=== PATIENT | female | born 1955 | race Caucasian/White ===

== ENCOUNTER → 2022-04-06 15:01 | Outpatient (BNVA) | payer MEDICARE, MEDICAID, SELFPAY | PROVIDERS: PCP Internal Medicine; Visit Provider Internal Medicine Rheumatology | DX: L40.50 Arthropathic psoriasis, unspecified (principal); M19.041 Primary osteoarthritis, right hand; M19.042 Primary osteoarthritis, left hand | CPT/HCPCS: 99212 ==

== ENCOUNTER → 2022-09-29 08:54 | Outpatient (BNVA) | payer MEDICARE, MEDICAID, SELFPAY | PROVIDERS: PCP Internal Medicine; Visit Provider Internal Medicine Rheumatology | DX: L40.50 Arthropathic psoriasis, unspecified (principal); L40.9 Psoriasis, unspecified; M19.041 Primary osteoarthritis, right hand; M19.042 Primary osteoarthritis, left hand; Z79.899 Other long term (current) drug therapy | CPT/HCPCS: 36415; 80053; 85025; 85652; 86140; 99212 ==

== ENCOUNTER 2022-09-29 10:13 | Outpatient (REF) | payer MEDICARE, MEDICAID, SELFPAY ==
[2022-09-29 10:56] LABS: Basophils Percent Auto 0.6 % (0-2); Eosinophils Absolute Auto 0.1 X10*3/uL (0.0-0.4); Eosinophils Percent Auto 1.5 % (0-4); Imm Gran Abs Auto 0.01 X10*3/uL (0.00-0.03); Imm Gran Pct Auto 0.2 % (0.0-0.4); Lymphocytes Absolute Auto 1.6 X10*3/uL (1.2-4.9); MANUAL DIFF FLAG NO; Mean Corpuscular HGB Conc 33.3 g/dl (31.0-35.0); Mean Corpuscular Volume 93.1 fL (80.0-98.0); Mean Platelet Volume 11.2 fL (9.4-12.3); Monocytes Absolute Auto 0.7 X10*3/uL (0.1-1.2); Monocytes Percent Auto 9.9 % (2-11); Neutrophils Absolute Auto 4.1 x10*3/uL (2.0-8.3); Neutrophils Percent Auto 62.8 % (45-73); Platelet Count 214 X10*3/uL (160-400); Red Blood Count 4.51 X10*6/uL (4.20-5.50); White Blood Count 6.6 X10*3/uL (4.8-10.8)
[2022-09-29 11:29] LABS: Alanine Aminotransferase 14 U/L (0-31); Albumin Level 4.5 g/dL (3.5-5.0); Alkaline Phosphatase 47 U/L (39-117); Anion Gap 16 (12-20); Aspartate Amino Transferase 22 U/L (5-31); Bilirubin Total 0.5 mg/dL (0.0-1.0); Blood Urea Nitrogen 18 mg/dL (9-16); C Reactive Protein 0.62 mg/dL (< or = 0.50); Calcium 9.6 mg/dL (8.4-10.2); Carbon Dioxide 24 mmol/L (22-29); Chloride 102 mmol/L (96-108); Estimated Glomerular Filt Rate > 60; Glucose Random 88 mg/dL (60-115); Sodium 138 mmol/L (135-145); Total Protein 7.4 g/dL (6.5-8.0)
[2022-09-29 11:46] LABS: Erythrocyte Sedimentation Rate 5 MM/HR (0-20)
== END 2022-09-29 10:14 | disposition home or self-care (01) ==
LOC: HO.10HDL 10:13
PROVIDERS: Visit Provider Internal Medicine Rheumatology
DX: Z13.89 Encounter for screening for other disorder (principal)
CPT/HCPCS: 36415; 80053; 85025; 85652; 86140

== ENCOUNTER 2023-03-25 08:34 | Outpatient (AMB) | payer MEDICARE, MEDICAID, SELFPAY ==
[2023-03-25 08:38] VITALS: BP 154/80; PULSE 78; TEMP 36.3; BMI 25.0
--- NOTE | 2023-03-25 08:38 | A.OFFVIS_ITS ---
Intake Vital Signs 03/25/23 08:38 Height 5 ft 7 in Weight 159 lb 6.307 oz BMI 25.0 BP 154/80 H Blood Pressure Location Lt brachial Position Sitting Pulse 78 Pulse Source Palpation Temp 97.4 F Temp Source Skin Intake Visit Reasons: psa Intake Note: Pt seen today for PsA follow up. Denies new or increased joint pain. States skin is dry and flaky Cmv Driver Required: No Accompanied by: Self / Same As Patient Allergies No Known Allergies Allergy (Verified 03/25/23 08:39) Medication List - Last Reconciled 03/25/23 by Kirk Bourne MD adalimumab (Humira(CF) Pen) 40 mg (0.4 mL) subcut Q2W 56 days buprenorphine-naloxone 1.4-0.36 mg (Zubsolv) 1 tab sublingual DAILY bupropion HCl (Wellbutrin XL) 300 mg PO QAM calcipotriene 0.005% 1 appl topical BID PRN clonazepam 1 mg PO BID PRN clonidine HCl 0.2 mg PO BEDTIME PRN levothyroxine 150 mcg PO DAILY lisinopril 2.5 mg PO DAILY mometasone 0.1% 1 appl topical .twice a day PRN quetiapine (Seroquel) 200 mg PO DAILY sulfasalazine 0.5 grams PO QID triamcinolone acetonide 0.1% 1 appl topical DAILY umeclidinium-vilanterol 62.5-25 mcg/actuation 1 inh inhalation DAILY HPI HPI Comments History of Present Illness Details The patient returns for evaluation of her psoriatic arthritis and psoriasis. She says the psoriasis is absent. She gets occasional discomfort in the hands mostly at the base of the thumbs. This seems to occur after heavier yard work. She is tolerating the 40 mg every 2 weeks Humira and 1 g b.i.d. sulfasalazine without any apparent side effects. She did have blood work done earlier in the summer. [facility] Surgical History H/O breast biopsy History of surgery Hx of colonoscopy Family History Mother Stroke Hypertension Arthritis Father Cirrhosis Liver cancer Social History Household Members Other:: lives alone Housing: Other Housing Other:: Mobile home Are you a primary customer care coordinator to a significant other at home: No Do you presently have visiting nurse or other home services: No 75 years or older and lives alone: No Alcohol intake: never Tobacco use type: Cigarette Cigarettes Per Day: 9 Years Smoked: 35 years e-Cigarette/Vaping Use: Never Used service: No Current occupational status: retired Review of Systems Const Details: Negative for appetite change, weight change, fever, chills, malaise and fatigue Eyes Details: Negative for vision change, dry eyes,headaches and dizziness Skin/Breast Details: Negative for itching, rash, hives, Raynaud's symptoms, sun sensitivity, and skin cancer Endo Details: Negative for polyuria and polydypsia Wei/Lymph Details: Negative for excessive bruising or bleeding. Physical Exam Vital Signs: Last Vital Signs Temp 97.4 F 03/25/23 08:38 Pulse 78 03/25/23 08:38 BP 154/80 H 03/25/23 08:38 BMI result Body Mass Index 25.0 APPEARANCE: Patient in no acute distress EYES no redness, pupils equal and reactive to light, eyelids normal EXTREMITIES: No edema, no calf tenderness, normal peripheral pulses. SKIN: No inflammatory or neoplastic lesions. Normal color and turgor JOINT EXAM: Cervical Spine:.? Full range of motion without pain; no tenderness. Thoracic Spine:.? No scoliosis.? No tenderness on palpation. Lumbar Spine:.? Alignment normal.? Full range of motion without pain, no tenderness. Chest Wall:.? No tenderness, swelling, increased warmth or erythema. Hands:.? ? Right:? Slight thickening without tenderness of the 1st 3 MCP joints.? There is slight thickening at the 2nd PIP which has some degree of pain with full extension.? It is minimally tender but not red or warm. ? She can only flex about 90 degrees at that PIP joint.? Passively I can extend the joint fully but she lacks about 10 degrees of full extension.? There is moderate bony enlargement and mild to moderate tenderness at the base of the thumb.? There is some slight thickening without tenderness or limited motion at the other PIP joints.? Similarly the 2nd through 5th D IP's have some mild bony enlargement, flexion deformity but no tenderness.? Left:? Mild tenderness and swelling with the bony enlargement at the 1st CMC joint.? There is some slight thickening without tenderness at the 4th and 5th PIP in the 2nd and 5th PIP joints.? She has no thenar atrophy or sensory loss.? Wrists:.? Normal pain-free range of motion without tenderness, swelling, increased warmth or erythema. Elbows:. Normal pain-free range of motion without tenderness, swelling, increased warmth or erythema. Shoulders:.?? Full range of motion without pain. No tenderness, weakness, swelling, increased warmth or erythema. Hips:.? Full range of motion without pain. Hip bursa:.? No tenderness. Knees:.?? Normal pain-free range of motion with mild patellofemoral crepitus.? There is some slight medial tenderness in the left knee but not on the right.? Both knees lack effusions, soft tissue swelling, increased warmth or erythema.? Ankles:.? Normal pain-free range of motion without tenderness, swelling, increased warmth or erythema. Feet:.? ? Right:? Slight bony enlargement without tenderness at the 1st MTP joint; otherwise the joints in the foot have normal pain-free range of motion without tenderness, swelling, increased warmth or erythema. left:? Slight bony enlargement at the 1st MTP.? No MTP tenderness.? No other tenderness, redness or soft tissue swelling. Tender points:? No tenderness to digital palpation at the occiput, trapezius, second rib, lateral epicondyle, knees, greater trochanter and gluteal area bilaterally. ? Results Reviewed Results Reviewed: Lab work from [place]: December 2020: Creatinine 0.74, hemoglobin 14.4, white count 4000, AST 13, ALT 14. QuantiFERON testing negative the February 2023: Creatinine 0.92, AST 20 Assessment & Plan Assessment & Plan (1) Psoriasis: Code(s): L40.9 - Psoriasis, unspecified (2) Osteoarthritis of hands, bilateral: Code(s): M19.041 - Primary osteoarthritis, right hand; M19.042 - Primary osteoarthritis, left hand (3) watermelon inspector use of drug: Code(s): Z79.899 - Other remote computer terminal operator (current) drug therapy (4) Psoriatic arthritis: Comment: Sulfasalazine since 05/10 Humira added 01/08, held for a few weeks due to rash Code(s): L40.50 - Arthropathic psoriasis, unspecified Plan Psoriatic arthritis with I think good control of inflammation with current treatment. She does not seem to have any side effects with the medications so they will be continued as above. The transaminases remain normal suggesting no return of her viral hepatitis B or C. She had recent blood work so I do not thi nk we need to repeat them. We will see her back in about 4-5 months. Coding Level of Care Code Est Pt Level 3 (68031) Diagnoses Psoriasis L40.9 Osteoarthritis of hands, bilateral M19.041; M19.042 watermelon inspector use of drug Z79.899 Psoriatic arthritis L40.50
== END 2023-03-25 09:16 | disposition home or self-care (01) ==
PROVIDERS: PCP Internal Medicine; Visit Provider Internal Medicine Rheumatology
DX: L40.9 Psoriasis, unspecified (principal); M19.041 Primary osteoarthritis, right hand; M19.042 Primary osteoarthritis, left hand; Z79.899 Other long term (current) drug therapy; L40.50 Arthropathic psoriasis, unspecified
CPT/HCPCS: 99213

== ENCOUNTER → 2023-03-25 08:34 | Outpatient (BNVA) | payer MEDICARE, MEDICAID, SELFPAY | PROVIDERS: PCP Internal Medicine; Visit Provider Internal Medicine Rheumatology | DX: L40.50 Arthropathic psoriasis, unspecified (principal); M19.041 Primary osteoarthritis, right hand; M19.042 Primary osteoarthritis, left hand; Z79.899 Other long term (current) drug therapy | CPT/HCPCS: 99212 ==

== ENCOUNTER 2023-07-26 10:25 | Outpatient (REF) | payer MEDICARE, OTHER, SELFPAY ==
--- NOTE | ~2023-07-26 | XR_ITS ---
EXAMINATION: XR HAND, RIGHT CLINICAL INFORMATION: Arthropathic psoriasis. COMPARISON: None available. TECHNIQUE: PA, lateral, and oblique views of the right hand. FINDINGS: Bony alignment and mineralization are normal. There are multi-focal arthritic changes of the interphalangeal joints of the fingers. These findings are particularly pronounced of the third through fifth distal interphalangeal joints and the fifth proximal interphalangeal joint, where there are central erosions. There is mild arthritic change of the first, second, third and fifth metacarpophalangeal joints. There is marked arthritic change of the first carpometacarpal joint. There is narrowing of the radiocarpal joint. No fracture or dislocation is seen. The proximal and distal carpal rows are intact. No focal soft tissue swelling, gas or foreign body is seen. XR/XR hand LT min 3V IMPRESSION: There are multi-focal arthritic changes of the right hand and wrist. There are central erosions of interphalangeal joints of the third through fifth fingers, consistent with the provided history of psoriasis. There is no acute fracture or dislocation. EXAMINATION: XR HAND, LEFT CLINICAL INFORMATION: Arthropathic psoriasis. COMPARISON: None available. TECHNIQUE: PA, lateral, and oblique views of the left hand. FINDINGS: Bony alignment and mineralization are normal. There are multi-focal arthritic changes of the interphalangeal joints of the fingers. These findings are most pronounced of the fourth proximal interphalangeal joint and the fifth proximal and distal interphalangeal joints, where there are central erosions. There is marked arthritic change of the first carpometacarpal joint. No fracture or dislocation is seen. The proximal and distal carpal rows are intact. No focal soft tissue swelling, gas or foreign body is seen. IMPRESSION: There are multi-focal arthritic changes of the left hand and wrist. There are central erosions of the interphalangeal joints of the fourth and fifth fingers, consistent with the provided history of psoriasis. No fracture or dislocation is seen.
--- NOTE | ~2023-07-26 | XR_ITS ---
EXAMINATION: XR HAND, RIGHT CLINICAL INFORMATION: Arthropathic psoriasis. COMPARISON: None available. TECHNIQUE: PA, lateral, and oblique views of the right hand. FINDINGS: Bony alignment and mineralization are normal. There are multi-focal arthritic changes of the interphalangeal joints of the fingers. These findings are particularly pronounced of the third through fifth distal interphalangeal joints and the fifth proximal interphalangeal joint, where there are central erosions. There is mild arthritic change of the first, second, third and fifth metacarpophalangeal joints. There is marked arthritic change of the first carpometacarpal joint. There is narrowing of the radiocarpal joint. No fracture or dislocation is seen. The proximal and distal carpal rows are intact. No focal soft tissue swelling, gas or foreign body is seen. XR/XR hand RT min 3V IMPRESSION: There are multi-focal arthritic changes of the right hand and wrist. There are central erosions of interphalangeal joints of the third through fifth fingers, consistent with the provided history of psoriasis. There is no acute fracture or dislocation. EXAMINATION: XR HAND, LEFT CLINICAL INFORMATION: Arthropathic psoriasis. COMPARISON: None available. TECHNIQUE: PA, lateral, and oblique views of the left hand. FINDINGS: Bony alignment and mineralization are normal. There are multi-focal arthritic changes of the interphalangeal joints of the fingers. These findings are most pronounced of the fourth proximal interphalangeal joint and the fifth proximal and distal interphalangeal joints, where there are central erosions. There is marked arthritic change of the first carpometacarpal joint. No fracture or dislocation is seen. The proximal and distal carpal rows are intact. No focal soft tissue swelling, gas or foreign body is seen. IMPRESSION: There are multi-focal arthritic changes of the left hand and wrist. There are central erosions of the interphalangeal joints of the fourth and fifth fingers, consistent with the provided history of psoriasis. No fracture or dislocation is seen.
== END 2023-07-26 10:26 | disposition home or self-care (01) ==
LOC: HO.XRAY 10:25
PROVIDERS: PCP Internal Medicine; Visit Provider Nurse Practitioner Family
DX: L40.50 Arthropathic psoriasis, unspecified (principal); M19.041 Primary osteoarthritis, right hand; M19.042 Primary osteoarthritis, left hand; Z79.899 Other long term (current) drug therapy
CPT/HCPCS: 36415; 73130; 80053; 85025; 85652; 86140; 99212

== ENCOUNTER 2023-07-26 10:25 | Outpatient (AMB) | payer MEDICARE, MEDICAID, SELFPAY ==
[2023-07-26 10:30] VITALS: BP 110/80; PULSE 79; TEMP 36.2; O2SAT 95; BMI 24.8
--- NOTE | 2023-07-26 10:30 | A.OFFVIS_ITS ---
Intake Vital Signs 07/26/23 10:30 Height 5 ft 7 in Weight 158 lb 8.198 oz BMI 24.8 BP 110/80 Blood Pressure Location Rt brachial Position Sitting Pulse 79 Pulse Source Pulse Oximeter Temp 97.2 F Temp Source Skin Pulse Oximetry (%) 95 Oxygen Delivery Method Room Air Intake Visit Reasons: ra Intake Note: Patient presents today to follow up on RA. Last seen by Dr. Bourne on 03/25/23. Craft Recruiter Required: No Accompanied by: Self / Same As Patient Allergies No Known Allergies Allergy (Verified 07/26/23 10:30) HPI HPI Comments History of Present Illness Details Ms. Schwartz, 67 yoF returns for follow-up of her psoriatic arthritis and psoriasis. She says the psoriasis is absent except that her plantar and heels gets dry and cracks at times especially during the winter. She gets occasional discomfort in the hands mostly at the base of the thumbs. This seems to occur after heavier yard work. She is tolerating the 40 mg every 2 weeks Humira and 1 g b.i.d. sulfasalazine without any apparent side effects. Last available labs 03/2023. PFSH Surgical History Hx of colonoscopy History of surgery H/O breast biopsy Family History Mother Stroke Hypertension Arthritis Father Cirrhosis Liver cancer Social History (Updated 07/26/23 @ 10:33 by EMANUEL Morton) Household Members Other:: lives alone Housing: Other Housing Other:: Mobile home Are you a primary technical healthcare consultant to a significant other at home: No Do you presently have visiting nurse or other home services: No 75 years or older and lives alone: No Alcohol intake: never Tobacco use type: Cigarette Cigarettes Per Day: 10 Years Smoked: 35 years e-Cigarette/Vaping Use: Never Used service: No Current occupational status: retired Review of Systems Const All systems reviewed & are unremarkable except as noted in HPI and below Physical Exam Vital Signs: Last Vital Signs Temp 97.2 F 07/26/23 10:30 Pulse 79 07/26/23 10:30 BP 110/80 07/26/23 10:30 Pulse Ox 95 07/26/23 10:30 Oxygen Delivery Method Room Air 07/26/23 10:30 BMI result Body Mass Index 24.8 APPEARANCE: Patient in no acute distress; groomed, pleasant affect EYES no redness, pupils equal and reactive to light, eyelids normal EXTREMITIES: No edema, no calf tenderness, normal peripheral pulses. SKIN: No inflammatory or neoplastic lesions. dry, mild cracking to plantar and heel JOINT EXAM: Hands:.? ? Right:? Slight thickening without tenderness of the 1st 3 MCP joints.? There is slight thickening at the 2nd PIP which has some degree of pain with full extension.? It is minimally tender but not red or warm. ? She can only flex about 90 degrees at that PIP joint.? Passively I can extend the joint fully but she lacks about 10 degrees of full extension.? There is moderate bony enlargement and mild to moderate tenderness at the base of the thumb.? There is some slight thickening without tenderness or limited motion at the other PIP joints.? Similarly the 2nd through 5th D IP's have some mild bony enlargement, flexion deformity but no tenderness.? Left:? Mild tenderness and swelling with the bony enlargement at the 1st CMC joint.? There is some slight thickening without tenderness at the 4th and 5th PIP in the 2nd and 5th PIP joints.? She has no thenar atrophy or sensory loss.? Wrists:.? Normal pain-free range of motion without tenderness, swelling, increased warmth or erythema. Elbows:. Normal pain-free range of motion without tenderness, swelling, increased warmth or erythema. Shoulders:.?? Full range of motion without pain. No tenderness, weakness, swelling, increased warmth or erythema. Hips:.? Full range of motion without pain. Hip bursa:.? No tenderness. Knees:.?? Normal pain-free range of motion with mild patellofemoral crepitus.? There is some slight medial tenderness in the left knee but not on the right.? Both knees lack effusions, soft tissue swelling, increased warmth or erythema.? Ankles:.? Normal pain-free range of motion without tenderness, swelling, in creased warmth or erythema. Feet:.? ? Right:? Slight bony enlargement without tenderness at the 1st MTP joint; otherwise the joints in the foot have normal pain-free range of motion without tenderness, swelling, increased warmth or erythema. left:? Slight bony enlargement at the 1st MTP.? No MTP tenderness.? No other tenderness, redness or soft tissue swelling. Tender points:? No tenderness to digital palpation at the occiput, trapezius, second rib, lateral epicondyle, knees, greater trochanter and gluteal area bilaterally. ? Results Reviewed Results Reviewed: Lab work from [place]: December 2020: Creatinine 0.74, hemoglobin 14.4, white count 4000, AST 13, ALT 14. QuantiFERON testing negative the February 2023: Creatinine 0.92, AST 20 Labs March 2023 CBC/CMP/ESR WNL Assessment & Plan Assessment & Plan (1) Psoriatic arthritis: Comment: Sulfasalazine since 05/10 Humira added 01/08, held for a few weeks due to rash Code(s): L40.50 - Arthropathic psoriasis, unspecified (2) Psoriasis: Code(s): L40.9 - Psoriasis, unspecified (3) Osteoarthritis of hands, bilateral: Code(s): M19.041 - Primary osteoarthritis, right hand; M19.042 - Primary osteoarthritis, left hand Qualifiers: Osteoarthritis type: other secondary Qualified Code(s): M19.241 - Secondary osteoarthritis, right hand; M19.242 - Secondary osteoarthritis, left hand (4) FPC use of drug: Code(s): Z79.899 - Other ocean transportation intermediary (current) drug therapy Plan #Psoriatic arthritis/PsO/Dry skin on feet: Ms. Schwartz is having good control of inflammation and PsO with the current treatment regimen of Humira 40mg Q2W and Sulfasalazine 500mg QID. I recommend to patient to lather her feet at night with Vaseline or lotion and sleep with sock. This can help to exfoliate the dry skin from plantar and heels. Patient agree so we will reassess at next visit. #Hand OA: Patient denies chronic discomfort to her hands but thumbs are sometimes bothersome. She can continue to use Tylenol PRN for residual hand pain. #Manager Asset Management Medication Use: She denies side effects with the medications and nothing observed on PE. Updated labs are needed today to assess for blood dyscrasias and to evaluate kidney and liver functions as she has a history of viral hepatitis B or C. Return to office in 6 months Orders: Orders C Reactive Protein Today L40.50 - Arthropathic psoriasis, unspecified, Z79.899 - Other ocean transportation intermediary (current) drug therapy Complete Blood Count Auto Diff Today L40.50 - Arthropathic psoriasis, unspecified, Z79.899 - Other ocean transportation intermediary (current) drug therapy Complete Blood Count Auto Diff 6 Months L40.50 - Arthropathic psoriasis, unspecified, L40.9 - Psoriasis, unspecified Erythrocyte Sedimentation Rate 6 Months L40.50 - Arthropathic psoriasis, unspecified C Reactive Protein 6 Months L40.50 - Arthropathic psoriasis, unspecified Erythrocyte Sedimentation Rate Today L40.50 - Arthropathic psoriasis, unspecified, Z79.899 - Other penitentiary (current) drug therapy Comprehensive Met. Panel Today L40.50 - Arthropathic psoriasis, unspecified, Z79.899 - Other penitentiary (current) drug therapy XR hand RT min 3V Today L40.50 - Arthropathic psoriasis, unspecified XR hand LT min 3V Today L40.50 - Arthropathic psoriasis, unspecified Coding Level of Care Code Est Pt Level 3 (41394) Diagnoses Psoriatic arthritis L40.50 Psoriasis L40.9 Other secondary osteoarthritis of both hands M19.241; M19.242 Osteoarthritis type: other secondary exterminator use of drug Z79.899
== END 2023-07-26 11:03 | disposition home or self-care (01) ==
PROVIDERS: PCP Internal Medicine; Visit Provider Nurse Practitioner Family
DX: L40.50 Arthropathic psoriasis, unspecified (principal); L40.9 Psoriasis, unspecified; M19.241 Secondary osteoarthritis, right hand; M19.242 Secondary osteoarthritis, left hand; Z79.899 Other long term (current) drug therapy
CPT/HCPCS: 99213

== ENCOUNTER 2023-07-26 11:26 | Outpatient (REF) | payer MEDICARE, MEDICAID, SELFPAY ==
[2023-07-26 13:22] LABS: MANUAL DIFF FLAG NO
[2023-07-26 14:01] LABS: Basophils Absolute Auto 0.1 X10*3/uL (0.0-0.2); Basophils Percent Auto 0.9 % (0-2); Eosinophils Absolute Auto 0.2 X10*3/uL (0.0-0.4); Eosinophils Percent Auto 2.7 % (0-4); Hematocrit 39.2 % (37.0-47.0); Hemoglobin 12.7 g/dl (12.0-16.0); Imm Gran Abs Auto 0.01 X10*3/uL (0.00-0.03); Imm Gran Pct Auto 0.2 % (0.0-0.4); Lymphocytes Absolute Auto 2.3 X10*3/uL (1.2-4.9); Lymphocytes Percent Auto 39.8 % (20-40); Mean Corpuscular HGB Conc 32.4 g/dl (31.0-35.0); Mean Corpuscular Hemoglobin 30.6 pg (27.0-33.0); Mean Corpuscular Volume 94.5 fL (80.0-98.0); Mean Platelet Volume 11.9 fL (9.4-12.3); Monocytes Absolute Auto 0.7 X10*3/uL (0.1-1.2); Monocytes Percent Auto 11.5 % (2-11); Neutrophils Absolute Auto 2.6 x10*3/uL (2.0-8.3); Neutrophils Percent Auto 44.9 % (45-73); Platelet Count 204 X10*3/uL (160-400); Red Blood Count 4.15 X10*6/uL (4.20-5.50); Red Cell Distribution Width 12.7 % (11.0-16.0); White Blood Count 5.9 X10*3/uL (4.8-10.8)
[2023-07-26 14:24] LABS: Alanine Aminotransferase 8 U/L (0-31); Alkaline Phosphatase 53 U/L (39-117); Anion Gap 11 (12-20); Aspartate Amino Transferase 15 U/L (5-31); Bilirubin Total 0.3 mg/dL (0.0-1.0); Blood Urea Nitrogen 16 mg/dL (9-16); C Reactive Protein 0.34 mg/dL (< or = 0.50); Carbon Dioxide 26 mmol/L (22-29); Chloride 105 mmol/L (96-108); Estimated Glomerular Filt Rate > 60; Glucose Random 106 mg/dL (60-115); Potassium 4.3 mmol/L (3.3-5.1); Sodium 138 mmol/L (135-145); Total Protein 7.1 g/dL (6.5-8.0)
[2023-07-26 15:22] LABS: Erythrocyte Sedimentation Rate 5 MM/HR (0-20)
== END 2023-07-26 11:27 | disposition home or self-care (01) ==
LOC: HO.10HDL 11:26
PROVIDERS: Visit Provider Nurse Practitioner Family
DX: Z13.89 Encounter for screening for other disorder (principal)
CPT/HCPCS: 36415; 80053; 85025; 85652; 86140

== ENCOUNTER 2024-01-25 08:24 | Outpatient (AMB) | payer MEDICARE, SELFPAY ==
--- NOTE | 2024-01-25 08:49 | A.OFFVIS_ITS ---
Vital Signs 01/25/24 08:59 Height 5 ft 7 in Weight 150 lb 2.157 oz BMI 23.5 BP 136/72 Blood Pressure Location Rt brachial Position Sitting Pulse 93 Pulse Oximetry (%) 93 Intake Visit Reasons: PsA Intake Note: Patient last seen 07/26/23 by Edwardo, presents today for PsA follow up. Allergies No Known Allergies Allergy (Verified 01/25/24 08:59) HPI Comments Details: Ms. Schwartz, 67 yoF returns for follow-up of her psoriatic arthritis and psoriasis. She says the psoriasis is absent except that her plantar and heels gets dry and cracks at times especially during the winter. She gets occasional discomfort in the hands mostly at the base of the thumbs. This seems to occur after heavier yard work. She is tolerating the 40 mg every 2 weeks Humira and 1 g b.i.d. sulfasalazine without any apparent side effects. She has warts on the right 4th DIP. Denies tenderness. Last available labs 07/2023. PFSH Surgical History Hx of colonoscopy History of surgery H/O breast biopsy Family History Mother Stroke Hypertension Arthritis Father Cirrhosis Liver cancer Social History (Updated 07/26/23 @ 10:33 by EMANUEL [place]) Household Members Other:: lives alone Housing: Other Housing Other:: Mobile home Are you a primary critical care clinical nurse specialist to a significant other at home: No Do you presently have visiting nurse or other home services: No 75 years or older and lives alone: No Alcohol intake: never Tobacco use type: Cigarette Cigarettes Per Day: 7 Years Smoked: 35 years e-Cigarette/Vaping Use: Never Used service: No Current occupational status: retired Review of Systems Const All systems reviewed & are unremarkable except as noted in HPI and below Physical Exam APPEARANCE: Patient in no acute distress; groomed, pleasant affect EYES no redness, eyelids normal EXTREMITIES: No edema, no calf tenderness, normal peripheral pulses. SKIN: No inflammatory or neoplastic lesions. dry, mild cracking to plantar and heel; right 4th DIP wart x 2 JOINT EXAM: Hands:.? ? Right:? Slight thickening without tenderness of the 1st 3 MCP joints.? There is slight thickening at the 2nd PIP which has some degree of pain with full extension.? It is minimally tender but not red or warm. ? She can only flex about 90 degrees at that PIP joint.? Passively I can extend the joint fully but she lacks about 10 degrees of full extension.? There is moderate bony enlarg ement and mild to moderate tenderness at the base of the thumb.? There is some slight thickening without tenderness or limited motion at the other PIP joints.? Similarly the 2nd through 5th D IP's have some mild bony enlargement, flexion deformity but no tenderness.? Left:? Mild tenderness and swelling with the bony enlargement at the 1st CMC joint.? There is some slight thickening without tenderness at the 4th and 5th PIP in the 2nd and 5th PIP joints.? She has no thenar atrophy or sensory loss.? Wrists:.? Normal pain-free range of motion without tenderness, swelling, increased warmth or erythema. Elbows:. Normal pain-free range of motion without tenderness, swelling, increased warmth or erythema. Shoulders:.?? Full range of motion without pain. No tenderness, weakness, swelling, increased warmth or erythema. Hips:.? Full range of motion without pain. Hip bursa:.? No tenderness. Knees:.?? Normal pain-free range of motion with mild patellofemoral crepitus.? There is some slight medial tenderness in the left knee but not on the right.? Both knees lack effusions, soft tissue swelling, increased warmth or erythema.? Ankles:.? Normal pain-free range of motion without tenderness, swelling, increased warmth or erythema. Feet:.? ? Right:? Slight bony enlargement without tenderness at the 1st MTP joint; otherwise the joints in the foot have normal pain-free range of motion without tenderness, swelling, increased warmth or erythema. left:? Slight bony enlargement at the 1st MTP.? No MTP tenderness.? No other tenderness, redness or soft tissue swelling. Tender points:? No tenderness to digital palpation at the occiput, trapezius, second rib, lateral epicondyle, knees, greater trochanter and gluteal area bilaterally. ? Assessment & Plan Assessment & Plan (1) Psoriatic arthritis: Comment: Sulfasalazine since 05/10 Humira added 01/08, held for a few weeks due to rash Code(s): L40.50 - Arthropathic psoriasis, unspecified Category: Medical (2) Psoriasis: Code(s): L40.9 - Psoriasis, unspecified Category: Medical (3) Osteoarthritis of hands, bilateral: Code(s): M19.041 - Primary osteoarthritis, right hand; M19.042 - Primary osteoarthritis, left hand Category: Medical Qualifiers: Osteoarthritis type: other secondary Qualified Code(s): M19.241 - Secondary osteoarthritis, right hand; M19.242 - Secondary osteoarthritis, left hand (4) [facility]FP use of drug: Code(s): Z79.899 - Other local company intermodal truck driver (current) drug therapy Category: Medical Plan #Psoriatic arthritis/PsO/Dry skin on feet: Ms. Schwartz is having good control of inflammation and PsO with the current treatment regimen of Humira 40mg Q2W and Sulfasalazine 500mg QID. She continues with dry heels as she forgot to do the recommended regimen, I had recommend to patient to lather her feet at night with Vaseline or lotion and sleep with sock as this can help to exfoliate the dry skin from plantar and heels. Patient agree so we will reassess at next visit. #Hand OA: Patient denies chronic discomfort to her hands but thumbs are sometimes bothersome. She can continue to use Tylenol PRN for residual hand pain. Xrays shows erosion consistent with PsA at the DIPs #Usp Medication Use: She denies side effects with the medications and nothing observed on PE. Updated CBC and CMP are needed today to assess for blood dyscrasias and to evaluate kidney and liver functions as she has a history of viral hepatitis B or C. Return to office in 6 months Orders: Orders Comprehensive Met. Panel Today Z79.899 - Other halfway (current) drug therapy Coding Level of Care Code Est Pt Level 3 (98578) Complex EM visit Add On G2211 Diagnoses Psoriatic arthritis L40.50 Psoriasis L40.9 Other secondary osteoarthritis of both hands M19.241; M19.242 Osteoarthritis type: other secondary terminal press operator use of drug Z79.899
[2024-01-25 08:59] VITALS: BP 136/72; PULSE 93; O2SAT 93; BMI 23.5
== END 2024-01-25 09:13 | disposition home or self-care (01) ==
PROVIDERS: PCP Internal Medicine; Visit Provider Nurse Practitioner Family
DX: L40.50 Arthropathic psoriasis, unspecified (principal); L40.9 Psoriasis, unspecified; M19.241 Secondary osteoarthritis, right hand; M19.242 Secondary osteoarthritis, left hand; Z79.899 Other long term (current) drug therapy
CPT/HCPCS: 99213; G2211

== ENCOUNTER → 2024-01-25 08:24 | Outpatient (BNVA) | payer MEDICARE, MEDICAID, SELFPAY | PROVIDERS: PCP Internal Medicine; Visit Provider Nurse Practitioner Family | DX: L40.50 Arthropathic psoriasis, unspecified (principal); L40.9 Psoriasis, unspecified; M19.241 Secondary osteoarthritis, right hand; M19.242 Secondary osteoarthritis, left hand; Z79.899 Other long term (current) drug therapy | CPT/HCPCS: 36415; 80053; 85025; 85652; 86140; 99212 ==

== ENCOUNTER 2024-01-25 09:16 | Outpatient (REF) | payer MEDICARE, MEDICAID, SELFPAY ==
[2024-01-25 11:03] LABS: Basophils Absolute Auto 0.1 X10*3/uL (0.0-0.2); Eosinophils Absolute Auto 0.1 X10*3/uL (0.0-0.4); Eosinophils Percent Auto 2.7 % (0-4); Hematocrit 39.2 % (37.0-47.0); Hemoglobin 13.2 g/dl (12.0-16.0); Imm Gran Abs Auto 0.01 X10*3/uL (0.00-0.03); Imm Gran Pct Auto 0.2 % (0.0-0.4); Lymphocytes Absolute Auto 1.7 X10*3/uL (1.2-4.9); MANUAL DIFF FLAG SCAN; Mean Corpuscular HGB Conc 33.7 g/dl (31.0-35.0); Mean Corpuscular Hemoglobin 31.7 pg (27.0-33.0); Mean Platelet Volume 11.3 fL (9.4-12.3); Monocytes Absolute Auto 0.6 X10*3/uL (0.1-1.2); Monocytes Percent Auto 10.6 % (2-11); Neutrophils Absolute Auto 2.8 x10*3/uL (2.0-8.3); Neutrophils Percent Auto 53.5 % (45-73); Platelet Count 217 X10*3/uL (160-400); Red Blood Count 4.17 X10*6/uL (4.20-5.50); Red Cell Distribution Width 12.2 % (11.0-16.0); SCAN SMEAR FLAG 1; White Blood Count 5.2 X10*3/uL (4.8-10.8)
[2024-01-25 11:34] LABS: SLIDE REVIEW VERIFIED
[2024-01-25 11:38] LABS: Alanine Aminotransferase 13 U/L (0-31); Albumin Level 4.4 g/dL (3.5-5.0); Alkaline Phosphatase 46 U/L (39-117); Anion Gap 14 (12-20); Aspartate Amino Transferase 23 U/L (5-31); Bilirubin Total 0.3 mg/dL (0.0-1.0); Blood Urea Nitrogen 13 mg/dL (9-16); C Reactive Protein 1.07 mg/dL (< or = 0.50); Calcium 9.6 mg/dL (8.4-10.2); Carbon Dioxide 24 mmol/L (22-29); Chloride 106 mmol/L (96-108); Estimated Glomerular Filt Rate > 60; Glucose Random 102 mg/dL (60-115); Sodium 139 mmol/L (135-145); Total Protein 7.5 g/dL (6.5-8.0)
[2024-01-25 11:46] LABS: Erythrocyte Sedimentation Rate 7 MM/HR (0-20)
== END 2024-01-25 09:17 | disposition home or self-care (01) ==
LOC: HO.10HDL 09:16
PROVIDERS: Visit Provider Nurse Practitioner Family
DX: Z13.89 Encounter for screening for other disorder (principal)
CPT/HCPCS: 36415; 80053; 85025; 85652; 86140

== ENCOUNTER 2024-09-07 08:05 | Outpatient (AMB) | payer MEDICARE, MEDICAID, SELFPAY ==
--- NOTE | 2024-09-07 08:20 | MHC.OFFVIS ---
Vital Signs 09/07/24 08:25 Height 5 ft 7 in Weight 147 lb 4.301 oz BMI 23.1 BP 132/80 Blood Pressure Location Lt brachial Position Sitting Respiration 16 Pulse 98 Pulse Source Pulse Oximeter Pulse Oximetry (%) 92 Oxygen Delivery Method Room Air Intake Visit Reasons: PSA Intake Note: Patient presents for PsA. Allergies No Known Allergies Allergy (Verified 09/07/24 08:24) Medication List - Last Reconciled 09/07/24 by Layla Chapa MD buprenorphine-naloxone 1.4-0.36 mg (Zubsolv) 1 tab sublingual DAILY bupropion HCl XL (Wellbutrin XL) 300 mg PO QAM clonazepam 0.5 mg PO BID PRN clonidine HCl 0.2 mg PO BEDTIME PRN Humira(CF) Pen (adalimumab) 40 mg (0.4 mL) subcut Q2W NS levothyroxine 150 mcg PO DAILY lisinopril 2.5 mg PO DAILY quetiapine (Seroquel) 200 mg PO DAILY sulfasalazine 500 mg PO QID 90 days umeclidinium-vilanterol 62.5-25 mcg/actuation 1 inh inhalation DAILY HPI Comments Details: Patient is a 68-year-old female with hypertension, hypothyroidism, history of hepatitis C status post treatment (remission achieved 11/2016) who presents for follow up of psoriasis and psoriatic arthritis Interval History: Patient last seen 01/25/2024 with Vaishali Brooke. At that time patient was stable and no changes were made to her medications. Today, Patient reports she is doing well tolerating her Humira and sulfasalazine. No new psoriatic patches and her joint pain has been overall stable Rheumatologic History: Diagnosed with psoriatic arthritis in 2017. Started on sulfasalazine and Humira was added 12/2018 due to inefficacy of sulfasalazine. Current Rheumatology Medication(s): Humira 40 mg every 2 weeks Sulfasalazine 500 mg 4 times a day [facility] Medical History (Updated 09/07/24 @ 09:11 by Layla Chapa MD) Adalimumab (Humira) long-term use Bilateral primary osteoarthritis of knee Surgical History Hx of colonoscopy History of surgery H/O breast biopsy Family History Mother Stroke Hypertension Arthritis Father Cirrhosis Liver cancer Social History Household Members Other:: lives alone Housing: Other Housing Other:: Mobile home Are you a primary career services director to a significant other at home: No Do you presently have visiting nurse or other home services: No 75 years or older and lives alone: No Alcohol intake: never Tobacco use type: Cigarette Cigarettes Per Day: 7 Years Smoked: 35 years e-Cigarette/Vaping Use: Never Used service: No Current occupational status: retired Review of Systems Const Details: Review of Systems Constitutional: Denies fever, chills, weight loss ENT: Denies vision changes, eye pain or eye redness, dental caries, dry mouth GI: Denies nausea, vomiting, diarrhea, abdominal pain, change in BM Pulm: Denies SOB, BUCK, hemoptysis, wheezing Cards: Denies chest pain, palpitations Skin: Denies Raynaud's, rash, nail changes, photosensitivity. Reports severe dry skin to her hands SNOWBOARDER: Denies headaches, weakness, paresthesias, recurrent falls MSK: as per HPI All other systems reviewed and are unremarkable except noted above Physical Exam Vital Signs: Last Vital Signs Pulse 98 09/07/24 08:25 Resp 16 09/07/24 08:25 BP 132/80 09/07/24 08:25 Pulse Ox 92 09/07/24 08:25 Oxygen Delivery Method Room Air 09/07/24 08:25 BMI result Body Mass Index 23.1 Vital signs reviewed Physical Examination CONSTITUITIONAL Patient alert and cooperative. Well appearing and in no apparent painful distress HEENT Conjunctiva and sclera clear. ?Pupils equal round and reactive to light. ?No lymphadenopathy. ? CHEST/RESPIRATORY SYSTEM Normal respiratory effort and able to speak in complete sentences. ?Clear to auscultation bilaterally. ?No crackles, rales, rhonchi, wheezes heard. CARDIAC SYSTEM Regular rate and rhythm. ?S1 and S2 heard no murmurs. ?Radial pulses intact bilaterally MSK Hands: ?Good candy maker helper strength bilaterally.?No synovitis noted to the MCPs, PIPs or DIPs. ?No tenderness to palpation of these joints. Significant Heberden's nodes and Belen's nodes noted throughout hands. Wrists: ?Full range of motion at the wrists without pain. ?No tenderness to palpation or synovitis noted to the wrists. Elbows: Full range of motion without pain. No tenderness, weakness, swelling, increased warmth or erythema. Shoulders: Full range of motion without pain. No tenderness, weakness, swelling, increased warmth or erythema. Hips: Full range of motion without pain. Hip bursa: No tenderness to palpation Knees: ?Full range of motion. ?No tenderness, swelling, increased warmth or erythema.?No effusion or crepitations Ankles: Full range of motion. ?No tenderness, swelling, increased warmth or erythema.? Feet: ?Negative squeeze test. ?No tenderness to palpation or swelling of the MTPs. Tender points:?No tenderness to palpation of the bilateral trapezius, supraspinatus, greater trochanters, anterior costochondral junctions, bilateral gluteal areas, bilateral suboccipital muscle insertions SKIN Significant xerosis to bilateral hands Results Reviewed Results Reviewed: Laboratory Tests 09/29/22 07/26/23 01/25/24 Unknown 11:30 09:20 WBC 5.2 RBC 4.17 L Hgb 13.2 Hct 39.2 Plt Count 217 ESR 7 Sodium 139 Potassium 5.0 Chloride 106 Carbon Dioxide 24 Anion Gap 14 BUN 13 Creatinine 0.83 AST 23 ALT 13 Alkaline Phosphatase 46 C-Reactive Protein 0.62 H 0.34 1.07 H Left Knee XR 03/2018 Findings: There is severe narrowing with subchondral sclerosis and spurring of the medial femoral tibial compartment. This has progressed significantly since the previous study (10/2014). There is degenerative spurring of the patellofemoral compartment and this has also progressed. No fracture or malalignment is seen. Soft tissues are normal. The patellae are normally positioned on the Merchant view. There appears to be a moderate joint effusion, not significantly changed. Impression: There is severe osteoarthritis and this has progressed since the previous study. Unchanged left knee joint effusion Assessment & Plan Assessment & Plan (1) Psoriatic arthritis: Comment: Sulfasalazine since 05/10 Humira added 01/08, held for a few weeks due to rash Code(s): L40.50 - Arthropathic psoriasis, unspecified Category: Medical Plan: #Psoriatic Arthritis Patient is a 68-year-old female with psoriasis complicated by psoriatic arthritis on Humira and sulfasalazine. Currently in remission on her current medications. Plan - Humira 40mg SC every other week - Sulfasalazine 400mg qid. Will try to taper at next visit to twice a day - CBC, CMP, ESR, CRP, Hepatitis panel, HCV viral load, HBV viral - RTC 5 months - CBC, CMP, ESR, CRP prior to next visit (2) Osteoarthritis of hands, bilateral: Code(s): M19.041 - Primary osteoarthritis, right hand; M19.042 - Primary osteoarthritis, left hand Category: Medical Qualifiers: Osteoarthritis type: other secondary Qualified Code(s): M19.241 - Secondary osteoarthritis, right hand; M19.242 - Secondary osteoarthritis, left hand Plan: #Bilateral Hand OA Bilateral hand OA. Overall stable not complaining of any morning stiffness or pain to the hands. (3) Bilateral primary osteoarthritis of knee: Code(s): M17.0 - Bilateral primary osteoarthritis of knee Category: Medical Plan: #Bilateral Knee OA Bilateral knee osteoarthritis as confirmed by imaging of the left knee in 2018. At this time she states that her knees are doing well. In the future we can consider viscosupplementation if her knees worsen. (4) senior care use of drug: Code(s): Z79.899 - Other longterm (current) drug therapy Category: Medical Plan: #Long-term Use of Sulphasalazine Discussed with patient the risks and benefits of sulfasalazine in the management of the rheumatic condition Benefits include: - Reduced pain, reduce mortality, maintenance of remission then reduction of flares Risks include: - GI upset, hemolysis (especially if G6PD deficiency), eosinophilia, headache, dizziness, rash, elevated LFTs (5) Adalimumab (Humira) long-term use: Code(s): Z79.620 - senior care (current) use of immunosuppressive biologic Category: Medical Plan: #Long-term Use of TNF Inhibitors: Humira Discussed with the patient the benefits and risks of TNF inhibitors for the management of the rheumatic condition Benefits include reduce pain, maintenance of remission and reduction of flares as well as ?progression of the disease Risks include injection sites/infusion reactions, serious infections (such as bacterial infections, opportunistic infections), malignancy, delaminating syndromes, autoimmune phenomena, CHF exacerbations, palmar plantar psoriasis and cytopenias Recommended rotating injection sites, and holding medication during and for up to 1 week after resolution of a febrile illness or open skin wound Plan I spent 20 minutes reviewing the record and labs, taking a history, examining the patient, discussing the treatment plan and documenting in the medical record Orders: Orders Comprehensive Met. Panel Today L40.50 - Arthropathic psoriasis, unspecified C Reactive Protein Today L40.50 - Arthropathic psoriasis, unspecified Erythrocyte Sedimentation Rate Today L40.50 - Arthropathic psoriasis, unspecified Hepatitis B Viral DNA Qn Today R76.8 - Other specified abnormal immunological findings in serum, Z79.899 - Other terminal computer operator (current) drug therapy, Z86.19 - Personal history of other infectious and parasitic diseases Complete Blood Count Auto Diff 5 Months L40.50 - Arthropathic psoriasis, unspecified Erythrocyte Sedimentation Rate 5 Months L40.50 - Arthropathic psoriasis, unspecified Complete Blood Count Auto Diff Today L40.50 - Arthropathic psoriasis, unspecified Hepatitis A,B,C Profile Today R76.8 - Other specified abnormal immunological findings in serum, Z79.899 - Other terminal computer operator (current) drug therapy, Z86.19 - Personal history of other infectious and parasitic diseases Hepatitis C Viral Load Today R76.8 - Other specified abnormal immunological findings in serum, Z79.899 - Other longterm (current) drug therapy, Z86.19 - Personal history of other infectious and parasitic diseases Comprehensive Met. Panel 5 Months L40.50 - Arthropathic psoriasis, unspecified C Reactive Protein 5 Months L40.50 - Arthropathic psoriasis, unspecified Coding Level of Care Code Est Pt Level 3 (20484) Complex EM visit Add On G2211 Diagnoses Psoriatic arthritis L40.50 Other secondary osteoarthritis of both hands M19.241; M19.242 Osteoarthritis type: other secondary Bilateral primary osteoarthritis of knee M17.0 senior care use of drug Z79.899 Adalimumab (Humira) long-term use Z79.620
[2024-09-07 08:25] VITALS: BP 132/80; PULSE 98; RESP 16; O2SAT 92; BMI 23.1
== END 2024-09-07 08:50 | disposition home or self-care (01) ==
PROVIDERS: PCP Internal Medicine; Visit Provider Student in an Organized Health Care Education/Training Program
DX: L40.50 Arthropathic psoriasis, unspecified (principal); M19.241 Secondary osteoarthritis, right hand; M19.242 Secondary osteoarthritis, left hand; M17.0 Bilateral primary osteoarthritis of knee; Z79.899 Other long term (current) drug therapy; Z79.620 Long term (current) use of immunosuppressive biologic
CPT/HCPCS: 99213; G2211

== ENCOUNTER → 2024-09-07 08:05 | Outpatient (BNVA) | payer MEDICARE, MEDICAID, SELFPAY | PROVIDERS: PCP Internal Medicine; Visit Provider Student in an Organized Health Care Education/Training Program | DX: L40.50 Arthropathic psoriasis, unspecified (principal); M19.241 Secondary osteoarthritis, right hand; M19.242 Secondary osteoarthritis, left hand; M17.0 Bilateral primary osteoarthritis of knee; R76.8 Other specified abnormal immunological findings in serum; I10 Essential (primary) hypertension; E03.9 Hypothyroidism, unspecified; Z86.19 Personal history of other infectious and parasitic diseases; Z79.620 Long term (current) use of immunosuppressive biologic; Z79.899 Other long term (current) drug therapy | CPT/HCPCS: 99212 ==

== ENCOUNTER 2024-09-08 13:39 | Outpatient (REF) | payer MEDICARE, MEDICAID, SELFPAY ==
[2024-09-08 13:50] LABS: MANUAL DIFF FLAG NO
[2024-09-08 14:14] LABS: Basophils Percent Auto 0.6 % (0-2); Eosinophils Absolute Auto 0.1 X10*3/uL (0.0-0.4); Eosinophils Percent Auto 2.1 % (0-4); Hematocrit 37.5 % (37.0-47.0); Hemoglobin 12.3 g/dl (12.0-16.0); Imm Gran Abs Auto 0.01 X10*3/uL (0.00-0.03); Imm Gran Pct Auto 0.2 % (0.0-0.4); Lymphocytes Absolute Auto 2.2 X10*3/uL (1.2-4.9); Lymphocytes Percent Auto 41.1 % (20-40); Mean Corpuscular HGB Conc 32.8 g/dl (31.0-35.0); Mean Corpuscular Hemoglobin 31.1 pg (27.0-33.0); Mean Corpuscular Volume 94.9 fL (80.0-98.0); Mean Platelet Volume 11.2 fL (9.4-12.3); Monocytes Absolute Auto 0.5 X10*3/uL (0.1-1.2); Monocytes Percent Auto 9.6 % (2-11); Neutrophils Absolute Auto 2.5 x10*3/uL (2.0-8.3); Neutrophils Percent Auto 46.4 % (45-73); Platelet Count 179 X10*3/uL (160-400); Red Blood Count 3.95 X10*6/uL (4.20-5.50); White Blood Count 5.3 X10*3/uL (4.8-10.8)
[2024-09-08 14:44] LABS: Alanine Aminotransferase 13 U/L (0-31); Albumin Level 4.2 g/dL (3.5-5.0); Alkaline Phosphatase 44 U/L (39-117); Anion Gap 10 (12-20); Aspartate Amino Transferase 19 U/L (5-31); Bilirubin Total 0.4 mg/dL (0.0-1.0); Blood Urea Nitrogen 15 mg/dL (9-16); Calcium 9.3 mg/dL (8.4-10.2); Carbon Dioxide 30 mmol/L (22-29); Chloride 104 mmol/L (96-108); Estimated Glomerular Filt Rate > 60; Glucose Random 109 mg/dL (60-115); Potassium 4.9 mmol/L (3.3-5.1); Sodium 139 mmol/L (135-145); Total Protein 7.4 g/dL (6.5-8.0)
[2024-09-08 15:11] LABS: Erythrocyte Sedimentation Rate 3 MM/HR (0-20)
[2024-09-11 08:15] LABS: HBS Num1 43.17 mIU/mL (0-7.99); HBc Num1 9.75 S/CO (0.00-0.79); HBsAGNum1 0.37 S/CO (0.00-0.99); Hepatitis A Antibody IgM 0.19 Index (0-0.79); Hepatitis B Surface Antigen Negative (Negative); ~HepC Num1 14.52 S/CO (0.00-0.79); ~Hepatitis A Antibody IgM Nonreactive (Nonreactive); ~Hepatitis B Surface Antibody REACTIVE (Nonreactive); ~Hepatitis C Antibody Reactive (Nonreactive)
[2024-09-11 10:16] LABS: HBc Num2 9.21 S/CO; HBc Num3 9.41 S/CO; Hepatitis B Core Antibody Reactive (Nonreactive)
[2024-09-11 17:28] LABS: Hepatitis B Viral DNA Qn - cp NOT DETECTED Log IU/mL (NOT DETECTED); Hepatitis B Viral DNA Qn-IU/mL NOT DETECTED (NOT DETECTED)
[2024-09-12 15:43] LABS: HCV Log PCR <1.18 NOT DETECTED Log IU/mL (NOT DETECTED); HepC Viral Load <15 NOT DETECTED IU/mL (NOT DETECTED)
== END 2024-09-08 13:40 | disposition home or self-care (01) ==
LOC: HO.LAB 13:39
PROVIDERS: PCP Internal Medicine; Visit Provider Student in an Organized Health Care Education/Training Program
DX: L40.50 Arthropathic psoriasis, unspecified (principal); Z86.19 Personal history of other infectious and parasitic diseases; R76.8 Other specified abnormal immunological findings in serum; Z79.899 Other long term (current) drug therapy
CPT/HCPCS: 36415; 80053; 85025; 85652; 86140; 86704; 86706; 86709; 86803; 87340; 87517; 87522

== ENCOUNTER 2025-01-02 13:44 | Outpatient (REF) | payer MEDICARE, MEDICAID, SELFPAY ==
[2025-01-02 13:56] LABS: MANUAL DIFF FLAG NO
[2025-01-02 14:25] LABS: Basophils Absolute Auto 0.1 X10*3/uL (0.0-0.2); Basophils Percent Auto 0.9 % (0-2); Eosinophils Absolute Auto 0.1 X10*3/uL (0.0-0.4); Eosinophils Percent Auto 1.6 % (0-4); Hematocrit 39.2 % (37.0-47.0); Imm Gran Abs Auto 0.01 X10*3/uL (0.00-0.03); Imm Gran Pct Auto 0.2 % (0.0-0.4); Lymphocytes Absolute Auto 2.3 X10*3/uL (1.2-4.9); Lymphocytes Percent Auto 40.9 % (20-40); Mean Corpuscular HGB Conc 33.2 g/dl (31.0-35.0); Mean Corpuscular Volume 93.3 fL (80.0-98.0); Mean Platelet Volume 10.6 fL (9.4-12.3); Monocytes Absolute Auto 0.6 X10*3/uL (0.1-1.2); Monocytes Percent Auto 10.5 % (2-11); Neutrophils Absolute Auto 2.6 x10*3/uL (2.0-8.3); Neutrophils Percent Auto 45.9 % (45-73); Platelet Count 207 X10*3/uL (160-400); Red Cell Distribution Width 12.3 % (11.0-16.0); White Blood Count 5.6 X10*3/uL (4.8-10.8)
[2025-01-02 14:51] LABS: Alanine Aminotransferase 11 U/L (0-31); Albumin Level 4.3 g/dL (3.5-5.0); Alkaline Phosphatase 38 U/L (39-117); Anion Gap 12 (12-20); Aspartate Amino Transferase 18 U/L (5-31); Bilirubin Total 0.2 mg/dL (0.0-1.0); Blood Urea Nitrogen 14 mg/dL (9-16); C Reactive Protein 0.15 mg/dL (< or = 0.50); Calcium 9.1 mg/dL (8.4-10.2); Carbon Dioxide 29 mmol/L (22-29); Chloride 101 mmol/L (96-108); Estimated Glomerular Filt Rate > 60; Glucose Random 104 mg/dL (60-115); Sodium 138 mmol/L (135-145); Total Protein 7.1 g/dL (6.5-8.0)
--- OUTSIDE RECORDS SUMMARY | 2025-01-02 14:53 | XMS_ITS | Clinical Summary ---
Author Organization [facility] Address [address] [place] [address] Care Team Providers Care Park Keeper Name Role Phone Nichole Agrawal DMD Primary Care Provider [phone] Source Comments PLEASE NOTE, if this patient is a minor, it may be UNLAWFUL to discuss sensitive information that is contained in these records (such as FAMILY PLANNING, MENTAL HEALTH or SUBSTANCE ABUSE) with the minor patient's parent or other person without the patient's specific authorization.[facility] Medications ibuprofen 800 mg tabletIndication s:Toothache Take 1 Tab by mouth 3 (three) times daily as needed for pain 30 Tab 05/04/2019 Active Active Problems No known active problems Social History Tobacco Use Types Packs/Day Years Used Date Smoking Tobacco: Every Day Cigarettes Smokeless Tobacco: Never Tobacco Cessation:Ready to Q uit: Not Asked; Counseling Given: Not Answered Social Connections Answer Date Recorded Connectedness 0 05/10/2024 Financial Resource Strain Answer Date R ecorded Financial Resource Strain 0 2018 Stress Answer Date Recorded Stress 0 05/04/2019 Physical Activity Answer Date Recorded Physical Activity 0 05/04/2019 Food Insecurity Answer Date Recorded Food 0 05/18/2024 Transportation Needs Answer Date Record ed Transportation 0 05/04/2019 Housing Stability Answer Date Recorded Housing 0 05/04/2019 Safety and Environment Answer Date Mu rded Safety 0 05/04/2019 Utilities Answer Date Recorded Utilities 0 05/04/2019 Employment Answer Date Recorded Stress 0 05/10/2024 Comments Unknown Sex and Gender Information Value Date Recorded Sex Assigned at Not on file Legal Sex Female 12:42 PM PDT Gender Identity Not on file Sexual Orientation Not on file Last Filed Vital Signs Vital Sign Reading Time Taken Comments Blood Pressure 116/78 04/26/2024 1:53 PM EDT Pulse 98 04/26/2024 1:53 PM EDT Temperature - - Respiratory Rate - - Oxygen Saturation - - Inhaled Oxygen Concentration - - Weight - - Height - - Body Mass Index - - Plan of Treatment Upcoming Encounters Date Type Department Care Team ([facility] st Contact Info) Description 03/26/2025 9:00 AM EDT Office Visit [facility] [address] [place] [id number] Shadia Fitzgerald [address] [place] [address] Health Maintenance Due Date Last Done Comments Tobacco Cessation Counseling (#10) 1955 09/01/2022, 10/03/2021, 01/31/2014, Additional history exists Breast Cancer Screening (Mammogram) 1996 CT Colonography 2001 Colonoscopy 2001 Colorectal Cancer Screening 2001 FIT/gFOBT 2001 Fecal DNA 2001 Flexible Sigmoidoscopy 2001 Imm-Pneumococcal 65+ (2 of 2 - PCV) 12/06/2015 12/05/2014 Imm-Zoster, Recombinant (2 of 2) 06/13/2018 04/18/20 18 Bone Density Screening 2021 Falls Prevention 2021 [id number] ( season) 2024 08/04/2021, 12/23/2020, 12/02/2020 Imm-Influenza (#1) 2024 07/03/2022, 1 , 05/04/2019, Additional history exists Alcohol and Drug Screen 08/23/2024 Depression Annual Screen 08/23/2024 Imm-DTaP/Tdap/Td (2 - Td or Tdap) 12/05/2024 015 Hypertension Screening (#1) 04/26/2025 Dental BW 09/28/2025 09/26/2024, 07/2 11/2023, 09/13/2023, Additional history exists Dental Examination 09/28/2025 09/26/2024, 0 03/15/2024, 09/13/2023, Additional history exists Dental Perio Charting 09/28/2025 09/26/2024 , 03/15/2024, 09/11/2022 Dental Prophy 09/28/2025 09/26/2024, 02/21, 09/13/2023, Additional history exists Diabetes Screening 03/06/2027 03/06/2024, 0 09/09/2023, 03/04/2023, Additional history exists Dental FMX/Pano 03/13/2027 03/11/2022 Lipid Screening 03/06/2029 03/06/2024, 08/23, 03/04/2023, Additional history exists Hepatitis C Screening Completed 12/14/2018, 018 Procedures Procedure Name Priority Date/Time Associated Diagnosis Comments COMP PERIODONTAL EVALUATION - NEW/EST PATIENT Routine 09/26/2024 9:40 AM EST Encounter for dental examination BITEWINGS - FOUR RADIOGRAPHIC IMAGES Routine 09/26/2024 9:40 AM EST Encounter for dental examination PROPHYLAXIS - ADULT Routine 09/26/2024 9 :40 AM EST Encounter for dental examination PERIODIC ORAL EVALUATION ESTABLISHED PATIENT Routine 09/26/2024 9:40 AM EST Encounter for dental examination Full INTRAORAL - COMP SERIES OF RADIOGRAPHIC IMAGES Routine 03/11/2022 3:40 PM EDT Dental examination from Last 3 Months or Most Recently Relevant to Health Maintenance Insurance [facility] Member Subscriber Plan / Payer (Ef fective 2013-Present) Name:Lana Wang Relation to Subscriber:Self Name:Lana Wang Payer ID:[id number] Group ID:[id number] Type:Medicaid Address: [facility] [address] [place] [address] Care Teams Park Keeper Relationship Specialty Start Date End Date Nichole Agrawal DMD [address] [place] [address] PCP - General 11/01/20
--- OUTSIDE RECORDS SUMMARY | 2025-01-02 14:53 | XMS_ITS | Encounter Summary ---
Author Organization [facility] Address [address] [place] [address] Care Team Providers Care International Editorial Producer Name Role Phone Mickey Tabares MD Primary Care Provider [phone] Sena Yu MD Unavailable Av Smith MD Unavailable Kirk Bourne MD Unavailable Unavaila ble Kirk Bourne MD Unavailable Unavaila ble Reason for Visit * Reason Comments E-prescribe Rx Request Encounter Details Date Type Department Care Team Description 06/05/2017 Refill Adult Medicine - [address] [address] Mickey Tabares MD [address] [place] [address] [phone] E-prescribe Rx Request Social History Tobacco Use Types Packs/Day Years Used Date Smoking Tobacco: Every Day Cigarettes 0.8 35 Started: 1975 Smokeless Tobacco: Current Alcohol Use Standard Drinks/Week Comments No 0 (1 standard drink = 0.6 oz pur e alcohol) Sex Assigned at Date Recorded Not on file Job Start Date Occupation Industry Not on file Not on file Not on file documented as of this encounter Miscellaneous Notes * Telephone Encounter - Mi Kovacs - 06/07/2017 10:36 AM EDT Left message to call back El [place]. When patient calls back please ask for Casandra [phone]. If no answer or unavailable please re-message to AD/MED B pool. Thank you * Telephone Encounter - Tamara García M.A. - 06/07/2017 9:35 AM EDT Last office visit: 08.03.16 No pending appt Lab Results Component Value Date TSH 2.52 08/03/2016 * Telephone Encounter - Martina Mujica - 06/05/2017 10:12 AM EDT Patient would like script to be: E-PRESCRIBED/FAXED TO PHARMACY WHEN WAS THE PATIENT'S LAST APPOINTMENT IN ADULT MEDICINE? 08/03/16 WHEN WAS THE LAST TIME THE PATIENT SAW THEIR PCP? Same as above Does patient have an upcoming appointment? Patient was sent a My Chart request to set up an appointment as they are due. (THE MEDICATION REQUESTED IS ON THE MED LIST ABOVE) All of the medications requested were on the CURRENT MEDS list Did you check the Pharmacy information above?: YES Patient wants: 30 -day supply Is this a mail order prescription request ? NO Patients current insurance carrier is: Payor: [employer] FFS / Plan: FFS HMO $0 [place] [id number] / Product Type: MEDICAID RISK documented in this encounter Plan of Treatment Not on file documented as of this encounter Visit Diagnoses Not on filedocumented in this encounter Care Teams International Editorial Producer Relationship Specialty Start Date End Date Mickey Tabares MD [address] [place] [address] PCP - General Internal Medicine 05/29/15 Sena Yu MD [address] [place] [address] Specialist Lung Cancer Die Sizer 11/27/21 Av Smith MD [address] [place] [phone] Specialist Pulmonology 11/27/21 Kirk Bourne MD [address] [place] [phone] Specialist Internal Medicine 11/27/21 Kirk Bourne MD [address] [place] [phone] Specialist Internal Medicine 11/27/2111/27 documented as of this encounter
--- OUTSIDE RECORDS SUMMARY | 2025-01-02 14:53 | XMS_ITS | Encounter Summary ---
Author Organization [facility] Address [address] [place] [address] Care Team Providers Care In Store Representative Name Role Phone Mickey Tabares MD Primary Care Provider [phone] Sena Yu MD Unavailable Av Smith MD Unavailable Kirk Bourne MD Unavailable Unavaila ble Kirk Bourne MD Unavailable Unavaila ble Reason for Visit * Reason Onset Date Comments other 11/18/2016 Hep C appointmen t Encounter Details Date Type Department Care Team Description 11/18/2016 Telephone Gastroenterology - [address] [address] Brannon Aguirre PA-C other (Hep C appointment) Social History Tobacco Use Types Packs/Day Years [...] encounter Miscellaneous Notes * Telephone Encounter - Priyanka Denney - 12/15/2016 11:08 AM EDT LMOM to schedule this appointment * Telephone Encounter - Argelia Hall L.P.N. - 12/15/2016 10:45 AM EDT She had this lab test done on 11/27/16 so now she needs the f/u appt w/ Joseph * Telephone Encounter - Brannon Aguirre PA-C - 11/18/2016 4:46 PM EDT Yes, she is due to have her 3 month post treatment follow-up hepatitis C testing on 11/20/2016 and she should follow-up in the office sometime after that to discuss the results. * Telephone Encounter - Ade Yates - 11/18/2016 4:38 PM EDT Pt is calling to find out if she needs to follow up again with you for Hep c, and if so does she need to get lab work. Please advise, thank you! documented in this encounter Plan of Treatment Not on file documented as of this encounter Visit Diagnoses Not on filedocumented in this encounter Care Teams In Store Representative Relationship Specialty Start Date End Date Mickey Tabares MD [address] [place] [address] PCP - General Internal Medicine 05/29/15 Sena Yu MD [address] [place] [address] Specialist Lung Cancer Bail Agent 11/27/21 Av Smith MD [address] [place] [address] Specialist Pulmonology 11/27/21 Kirk Bourne MD [address] [place] [address] Specialist Internal Medicine 11/27/21 Kirk Bourne MD [address] [place] [address] Specialist Internal Medicine 11/27/2111/27 documented as of this encounter
--- OUTSIDE RECORDS SUMMARY | 2025-01-02 14:53 | XMS_ITS | Encounter Summary ---
Author Organization [facility] [employer] [facility] [employer] Address [address] [place] [address] Care Team Providers Care Emergency Room Nurse Name Role Phone Mickey Tabares MD Primary Care Provider [phone] Sena Yu MD Unavailable Av Smith MD Unavailable Kirk Bourne MD Unavailable Unavaila ble Kirk Bourne MD Unavailable Unavaila lise Encounter Details Date Type Department Care Team Description 07/24/2020 Pt. Non Urgent Medical Question Adult Medicine - [address] [address] Mickey Tabares MD [address] [place] [address] Social History Tobacco Use Types Packs/Day Years Used Date Smoking Tobacco: Every Day Cigarettes 0.8 35 Started: 1975 Smokeless Tobacco: Never Alcohol Use Standard Drinks/Week Comments No 0 (1 standard drink = 0.6 oz pur e alcohol) Sex Assigned at Date Recorded Not on file Job Start Date Occupation Industry Not on file Not on file Not on file COVID-19 Exposure Response Date Recorded In the last month, have you been in contact with someone who was confirmed or suspected to have Coronavirus / COVID-19? No / Unsure 07/19/2020 8:27 AM EST documented as of this encounter Progress Notes * Tata Tidwell M.A. - 07/24/2020 10:58 AM ESTFrom: Lana Wang To: Mickey Tabares MD Sent: 07/24/2020 10:41 AM EST Subject: phone call I have been waiting on hold for 37 minutes to speak with you regarding a phone call from you this morning. I am waiting for a new cell phone, so you can call me at [phone]. Since this is a housephone i am not going to be here to answer it for all calls. It' s very frustrating to wait on hold for so long. If you pr efer you can leave a detail letter in my chart about the issue. now it's been41 minutes. documented in this encounter Plan of Treatment Not on file documented as of this encounter Visit Diagnoses Not on filedocumented in this encounter Care Teams Emergency Room Nurse Relationship Specialty Start Date End Date Mickey Tabares MD [address] [place] [address] PCP - General Internal Medicine 05/29/15 Sena Yu MD [address] [place] [address] Specialist Lung Cancer Cane Flume Chute Operator 11/27/21 Av Smith MD [address] [place] [phone] Specialist Pulmonology 11/27/21 Kirk Bourne MD [address] [place] [phone] Specialist Internal Medicine 11/27/21 Kirk Bourne MD [address] [place] [phone] Specialist Internal Medicine 11/27/2111/27 documented as of this encounter
--- OUTSIDE RECORDS SUMMARY | 2025-01-02 14:53 | XMS_ITS | Encounter Summary ---
Author Organization [facility] Address [address] [place] [address] Care Team Providers Care Tile Sorter Name Role Phone Mickey Tabares MD Primary Care Provider Sena Yu MD Unavailable Av Smith MD Unavailable Kirk Bourne MD Unavailable Unavaila ble iKrk Bourne MD Unavailable Unavaila ble Reason for Visit * Reason Onset Date Comments refill request 01/29/2021 Encounter Details Date Type Department Care Team Description 01/29/2021 Refill Rheumatology - [address] [address] Kirk Bourne MD refill request Social History Tobacco Use Types Packs/Day Years [...] have Coronavirus / COVID-19? No / Unsure 01/15/2021 7:57 AM EDT documented as of this encounter Miscellaneous Notes * Telephone Encounter - Chen Fatima M.A. - 01/29/2021 2:13 PM EDT Last Appt: 12/25 Next visit: 07/02 * Telephone Encounter - Swati Crowell - 01/29/2021 1:10 PM EDT {MED LIST:[id number]) Med name: DIFLORASONE DIACETATE OINTMENT Dosage: 180 GRAMS DISPENSE: 180 GRAMS Local pharmacy with request for 30 -day supply Instructions: APPLY 1-2GMS TO AFFECTED AREA(S) 2-3 TIMES DAILY Did you check the pharmacy information above?: NO Patients current insurance carrier: Payor: [employer] FFS / Plan: [employer] / Product Type: MEDICAID RISK documented in this encounter Plan of Treatment Not on file documented as of this encounter Visit Diagnoses Not on filedocumented in this encounter Care Teams Tile Sorter Relationship Specialty Start Date End Date Mickey Tabares MD [address] [place] [address] PCP - General Internal Medicine 05/29/15 Sena Yu MD [address] [place] [address] Specialist Lung Cancer Business Services Representative 11/27/21 Av Smith MD [address] [place] [address] Specialist Pulmonology 11/27/21 Kirk Bourne MD [address] [place] [address] Specialist Internal Medicine 11/27/21 Kirk Bourne MD [address] [place] [phone] Specialist Internal Medicine 11/27/2111/27 documented as of this encounter
--- OUTSIDE RECORDS SUMMARY | 2025-01-02 14:54 | XMS_ITS | Encounter Summary ---
Author Organization [facility] [employer] [facility] Address [address] [place] [address] Care Team Providers Care Leadership Development Consultant Name Role Phone Mickey Tabares MD Primary Care Provider [phone] Sena Yu MD Unavailable Av Smith MD Unavailable Kirk Bourne MD Unavailable Unavaila ble Kirk Bourne MD Unavailable Unavaila ble Reason for Visit * Reason Comments E-prescribe Rx Request Encounter Details Date Type Department Care Team Description [facility] [address] [address] Rohini Garay DO E-prescribe Rx Request Social History Tobacco Use [...] encounter Miscellaneous Notes * Telephone Encounter - Kinsey Kebede L.P.N. - 04/12/2018 11:10 AM EDT Left message for pt to call back * Telephone Encounter - Kirk Bourne MD - 04/11/2018 8:52 PM EDT Harleen, please call patient [phone] (home) [phone] (work) She is due for f/u appt.this fall Dr. Bourne * Telephone Encounter - Kinsey Kebede L.P.N. - 04/11/2018 11:44 AM EDT Lab Results Component Value Date ALB 4.3 06/30/2017 SGOT 17 06/30/2017 SGPT 9 06/30/2017 TBILI 0.2 06/30/2017 DBILI 0.1 08/21/2016 IBILI 0.1 08/21/2016 ALKPHOS 79 06/30/2017 TP 7.1 06/30/2017 Lab Results Component Value Date NA 143 06/30/2017 K 4.5 06/30/2017 CO2 28.3 06/30/2017 CL 102 06/30/2017 BUN 12 06/30/2017 CREAT 0.8 06/30/2017 GLU 75 06/30/2017 CA 9.6 06/30/2017 GFR > 60 06/30/2017 * Telephone Encounter - Rohini Cooper - 04/11/2018 11:02 AM EDT Patient would like script to be: E-PRESCRIBED/FAXED TO PHARMACY WHEN WAS THE PATIENT'S LAST APPOINTMENT IN ADULT MEDICINE? 03-10-2017 WHEN WAS THE LAST TIME THE PATIENT SAW THEIR PCP? 06-22-2017 Does patient have an upcoming appointment? No-patient refused appointment, will call back to book appointment (THE MEDICATION REQUESTED IS ON THE MED LIST ABOVE) All of the medications requested were on the CURRENT MEDS list Did you check the Pharmacy information above?: YES Patient wants: 30 -day supply Is this a mail order prescription request ? NO If the refill is from a FAXED refill request what is the RX # listed on the fax? N/A Patients current insurance carrier is: Payor: [employer] FFS / Plan: [employer] [place] / Product Type: MEDICAID RISK documented in this encounter Plan of Treatment Not on file documented as of this encounter Visit Diagnoses Diagnosis Primary osteoarthritis of left knee Primary localized osteoarthrosis, lower leg documented in this encounter Care Teams Leadership Development Consultant Relationship Specialty Start Date End Date Mickey Tabares MD [address] [place] [address] PCP - General Internal Medicine 05/29/15 Sena Yu MD [address] [place] [address] Specialist Lung Cancer Process Worker 11/27/21 Av Smith MD [address] [place] [phone] Specialist Pulmonology 11/27/21 Kirk Bourne MD [address] [place] [phone] Specialist Internal Medicine 11/27/21 Kirk Bourne MD [address] [place] [phone] Specialist Internal Medicine 11/27/2111/27 documented as of this encounter
--- OUTSIDE RECORDS SUMMARY | 2025-01-02 14:54 | XMS_ITS | Encounter Summary ---
Author Organization [facility] Address [address] [place] [address] Care Team Providers Care Medical Research Scientist Name Role Phone Mickey Tabares MD Primary Care Provider [phone] Sena Yu MD Unavailable Av Smith MD Unavailable Kirk Bourne MD Unavailable Unavaila ble Encounter Details Date Type Department Care Team Description 03/25/2023 Camera Technician Report Medical Records [address] [place] [address] Kirk Bourne MD Social History Tobacco Use Types Packs/Day Years Used Date Smoking Tobacco: Some Days Cigarettes 0.5 Started: 1975 Smokeless Tobacco: Never Comments:12/01/21: current sm oker, smoking 10-15 cig/day. Average 1 ppd since age 17. SATHISH: 50 Alcohol Use Standard Drinks/Week Comments No 0 (1 standard drink = 0.6 oz pur e alcohol) Sex Assigned at Date Recorded Not on file Job Start Date Occupation Industry Not on file Not on file Not on file COVID-19 Exposure Response Date Recorded In the last 10 days, have yo u been in contact with someone who was confirmed or suspected to have Coronavirus/COVID-19? No / Unsure 03/04/2023 3:13 PM EDT documented as of this encounter Plan of Treatment Not on file documented as of this encounter Visit Diagnoses Not on filedocumented in this encounter Care Teams Medical Research Scientist Relationship Specialty Start Date End Date Mickey Tabares MD [address] [place] [address] PCP - General Internal Medicine 05/29/15 Sena Yu MD [address] [place] [address] Specialist Lung Cancer Coal Screener 11/27/21 Av Smith MD [address] [place] [address] Specialist Pulmonology 11/27/21 Krik Bourne MD [address] [place] [address] Specialist Internal Medicine 11/27/21 documented as of this encounter
--- OUTSIDE RECORDS SUMMARY | 2025-01-02 14:54 | XMS_ITS | Encounter Summary ---
Author Organization [facility] [employer] [facility] Address [address] [place] [address] Care Team Providers Care Pipelayer Name Role Phone Shadia Iverson MD Primary Care Provider Mickey Win MD Primary Care Provider [phone] Sena Yu MD Unavailable Av Smith MD Unavailable Kirk Bourne MD Unavailable Unavaila ble Kirk Bourne MD Unavailable Unavaila ble Reason for Visit * Reason Comments Encounter Details Date Type Department Care Team Description 03/30/2015 Telephone Gastroenterology - [address] [address] Asael Busby MD Social History Tobacco Use Types Packs/Day Years Used Date Smoking Tobacco: Some Days Cigarettes 0.8 35 Alcohol Use Standard Drinks/Week Comments No 0 (1 standard drink = 0.6 oz pur e alcohol) Sex Assigned at Date Recorded Not on file Job Start Date Occupation Industry Not on file Not on file Not on file documented as of this encounter Plan of Treatment Not on file documented as of this encounter Visit Diagnoses Not on filedocumented in this encounter Care Teams Pipelayer Relationship Specialty Start Date End Date Shadia Iverson MD PCP - General Internal Medicine 09/12/14 05/28/15 Mickey Tabares MD [address] [place] [address] PCP - General Internal Medicine 05/29/15 Sena Yu MD [address] [place] [address] Specialist Lung Cancer Stone Grader 11/27/21 Av Smith MD [address] [place] [phone] Specialist Pulmonology 11/27/21 Kirk Bourne MD [address] [place] [address] Specialist Internal Medicine 11/27/21 Kirk Bourne MD [address] [place] [phone] Specialist Internal Medicine 11/27/2111/27 documented as of this encounter
--- OUTSIDE RECORDS SUMMARY | 2025-01-02 14:54 | XMS_ITS | Encounter Summary ---
Author Organization [facility] Address [address] [place] [address] Care Team Providers Care Chocolate Temperer Name Role Phone Mickey Tabares MD Primary Care Provider [phone] Sena Yu MD Unavailable Av Smith MD Unavailable Kirk Bourne MD Unavailable Unavaila ble Encounter Details Date Type Department Care Team Description 12/01/2021 Bead Inspector Report Medical Records [address] [place] [id number] [place] [address] Social History Tobacco Use Types Packs/Day Years Used Date Smoking Tobacco: Some Days Cigarettes 0.5 Started: 1975 Smokeless Tobacco: Never Alcohol Use Standard Drinks/Week Comments No 0 (1 standard drink = 0.6 oz pur e alcohol) Sex Assigned at Date Recorded Not on file Job Start Date Occupation Industry Not on file Not on file Not on file COVID-19 Exposure Response Date Recorded In the last 10 days, have prabha u been in contact with someone who was confirmed or suspected to have Coronavirus/COVID-19? No / Unsure 12/01/2021 1:44 PM EDT documented as of this encounter Plan of Treatment Not on file documented as of this encounter Visit Diagnoses Not on filedocumented in this encounter Care Teams Chocolate Temperer Relationship Specialty Start Date End Date Mickey Tabares MD [address] [place] [address] PCP - General Internal Medicine 05/29/15 Sena Yu MD [address] [place] [address] Specialist Lung Cancer Internet Security Specialist 11/27/21 Av Smith MD [address] [place] [address] Specialist Pulmonology 11/27/21 Kirk Bourne MD [address] [place] [address] Specialist Internal Medicine 11/27/21 documented as of this encounter
--- OUTSIDE RECORDS SUMMARY | 2025-01-02 14:54 | XMS_ITS | Encounter Summary ---
Author Organization [facility] [employer] [facility] Address [address] [place] [address] Care Team Providers Care Indian Blanket Weaver Name Role Phone Mickey Tabares MD Primary Care Provider [phone] Sena Yu MD Unavailable Av Smith MD Unavailable Kirk Bourne MD Unavailable Unavaila ble Kirk Bourne MD Unavailable Unavaila ble Encounter Details Date Type Department Care Team Description 07/11/2018 Antisqueak Filler Report Medical Records [address] [place] [address] Terell Adams MD Social History Tobacco Use Types Packs/Day [...] on filedocumented in this encounter Care Teams Indian Blanket Weaver Relationship Specialty Start Date End Date Mickey Tabares MD [address] [place] [address] [phone] PCP - General Internal Medicine 05/29/15 Sena Yu MD [address] [place] [address] [phone] Specialist Lung Cancer Truck Body Repairer 11/27/21 Av Smith MD [address] [place] [address] Specialist Pulmonology 11/27/21 Kirk Bourne MD [address] [place] [address] Specialist Internal Medicine 11/27/21 Kirk Bourne MD [address] [place] [address] Specialist Internal Medicine 11/27/2111/27 documented as of this encounter
--- OUTSIDE RECORDS SUMMARY | 2025-01-02 14:54 | XMS_ITS | Encounter Summary ---
Author Organization [employer] [facility] Address [address] [place] [address] Care Team Providers Care Sediment Remediation Consultant Name Role Phone Mickey Tabares MD Primary Care Provider [phone] Sena Yu MD Unavailable Av Smith MD Unavailable Kirk Bourne MD Unavailable Unavaila ble Kirk Bourne MD Unavailable Unavaila lise Encounter Details Date Type Department Care Team Description 10/15/2021 Pt. Referral Request [address] [address] Md Umesh Social History Tobacco Use Types Packs/Day Years [...] have Coronavirus / COVID-19? No / Unsure 10/03/2021 1:23 PM EST documented as of this encounter Plan of Treatment Not on file documented as of this encounter Visit Diagnoses Not on filedocumented in this encounter Care Teams Sediment Remediation Consultant Relationship Specialty Start Date End Date Mickey Tabares MD [address] [place] [address] PCP - General Internal Medicine 05/29/15 Sena Yu MD [address] [place] [address] Specialist Lung Cancer Finance Director 11/27/21 Av Smith MD [address] [place] [address] Specialist Pulmonology 11/27/21 Kirk Bourne MD [address] [place] [address] Specialist Internal Medicine 11/27/21 Kirk Bourne MD [address] [place] [address] Specialist Internal Medicine 11/27/2111/27 documented as of this encounter
--- OUTSIDE RECORDS SUMMARY | 2025-01-02 14:54 | XMS_ITS | Encounter Summary ---
Author Organization [facility] Address [address] [place] [address] Care Team Providers Care Loading Machine Operator Name Role Phone Mickey Tabares MD Primary Care Provider [phone] Sena Yu MD Unavailable Av Smith MD Unavailable Kirk Bourne MD Unavailable Unavaila ble Kirk Bourne MD Unavailable Unavaila ble Reason for Visit * Reason Onset Date Comments Medication 06/17/2016 Encounter Details Date Type Department Care Team Description 06/17/2016 Telephone Gastroenterology - [address] [address] Mickey Najera MD Medication Social History Tobacco Use Types Packs/Day Years [...] encounter Miscellaneous Notes * Telephone Encounter - Argelia Hall L.P.N. - 06/17/2016 11:20 AM EDT Spoke w/ Pt she wluod like to do her Colonoscopy next week while she is on vac. She was canc last week here @ [facility] because she is on Suboxone. She needs to be done @ the Hospital because of this medication,. Her # is [phone] Or cell [phone]./dg * Telephone Encounter - Ade Yates - 06/17/2016 10:59 AM EDT Patient calling to speak to Argelia in regards to her Hep C medication, her phone number is [phone] her cell [phone] documented in this encounter Plan of Treatment Not on file documented as of this encounter Visit Diagnoses Not on filedocumented in this encounter Care Teams Loading Machine Operator Relationship Specialty Start Date End Date Mickey Tabares MD [address] [place] [address] PCP - General Internal Medicine 05/29/15 Sena Yu MD [address] [place] [address] Specialist Lung Cancer Ediphone Operator 11/27/21 Av Smith MD [address] [place] [phone] Specialist Pulmonology 11/27/21 Kirk Bourne MD [address] [place] [phone] Specialist Internal Medicine 11/27/21 Kirk Bourne MD [address] [place] [phone] Specialist Internal Medicine 11/27/2111/27 documented as of this encounter
--- OUTSIDE RECORDS SUMMARY | 2025-01-02 14:54 | XMS_ITS | Encounter Summary ---
Author Organization [facility] Address [address] [place] [address] Care Team Providers Care Health Promoter Name Role Phone Mickey Tabares MD Primary Care Provider [phone] Sena Yu MD Unavailable Av Smith MD Unavailable Kirk Bourne MD Unavailable Unavaila ble Encounter Details Date Type Department Care Team Description 03/05/2023 Pt. Non Urgent Medical Question Adult Medicine - [address] [phone] Mickey Tabares MD [address] [place] [address] Social History Tobacco Use Types Packs/Day Years [...] PM EDT documented as of this encounter Miscellaneous Notes * Telephone Encounter - Tata Rogers 03/05/2023 11:55 AM EDTFrom: Lana Wang To: Lucy Tabares Sent: 03/05/2023 11:54 AM EDT Subject: Blood test results Should I be concerned that 2 of my tests were above the standard range? The glucose and my cholesterol were high. documented in this encounter Plan of Treatment Not on file documented as of this encounter Visit Diagnoses Not on filedocumented in this encounter Care Teams Health Promoter Relationship Specialty Start Date End Date Mickey Tabares MD [address] [place] [address] PCP - General Internal Medicine 05/29/15 Sena Yu MD [address] [place] [address] Specialist Lung Cancer Hiv/Aids Care Nurse 11/27/21 Av Smith MD [address] [place] [phone] Specialist Pulmonology 11/27/21 Kirk Bourne MD [address] [place] [phone] Specialist Internal Medicine 11/27/21 documented as of this encounter
--- OUTSIDE RECORDS SUMMARY | 2025-01-02 14:54 | XMS_ITS | Encounter Summary ---
Author Organization [facility] Address [address] [place] [address] Care Team Providers Care Boilermaker Central Steam Plant Name Role Phone Mickey Tabares MD Primary Care Provider [phone] Sena Yu MD Unavailable Av Smith MD Unavailable Kirk Bourne MD Unavailable Unavaila ble Encounter Details Date Type Department Care Team Description 12/10/2023 Student Services Vice President Report Medical Records [address] [place] [address] Center[facility] [address] [place] [address] Social History Tobacco Use Types Packs/Day Years [...] on filedocumented in this encounter Care Teams Boilermaker Central Steam Plant Relationship Specialty Start Date End Date Mickey Tabares MD [address] [place] [address] [phone] PCP - General Internal Medicine 05/29/15 Sena Yu MD [address] [place] [address] Specialist Lung Cancer Tile Mason 11/27/21 Av Smith MD [address] [place] [phone] Specialist Pulmonology 11/27/21 Kirk Bourne MD [address] [place] [address] Specialist Internal Medicine 11/27/21 documented as of this encounter
--- OUTSIDE RECORDS SUMMARY | 2025-01-02 14:54 | XMS_ITS | Encounter Summary ---
Author Organization [facility] Address [address] [place] [address] Care Team Providers Care Roller Stainer Name Role Phone Mickey Tabares MD Primary Care Provider [phone] Sena Yu MD Unavailable Av Smith MD Unavailable Kirk Bourne MD Unavailable Unavaila ble Reason for Visit * Reason Comments E-prescribe Rx Request Encounter Details Date Type Department Care Team Description 10/04/2023 Refill Pulmonology - [place] [address] [facility] [address] [place] [phone] Av Smith MD [address] [place] [address] E-prescribe Rx Request Social History Tobacco Use [...] encounter Miscellaneous Notes * Telephone Encounter - Loni Chou - 10/04/2023 11:53 AM EST [place] 09/01/22 documented in this encounter Plan of Treatment Not on file documented as of this encounter Visit Diagnoses Diagnosis Pulmonary emphysema, unspecified emphysema type (HCC) documented in this encounter Care Teams Roller Stainer Relationship Specialty Start Date End Date Mickey Tabares MD [address] [place] [address] PCP - General Internal Medicine 05/29/15 Sena Yu MD [address] [place] [address] Specialist Lung Cancer Noc Technician 11/27/21 Av Smith MD [address] [place] [phone] Specialist Pulmonology 11/27/21 Kirk Bourne MD [address] [place] [address] Specialist Internal Medicine 11/27/21 documented as of this encounter
--- OUTSIDE RECORDS SUMMARY | 2025-01-02 14:54 | XMS_ITS | Encounter Summary ---
Author Organization [facility] [employer] [facility] Address [address] [place] [address] Care Team Providers Care Cyber Systems Engineer Name Role Phone Shadia Iverson MD Primary Care Provider Mickey Win MD Primary Care Provider [phone] Sena Yu MD Unavailable Av Smith MD Unavailable Kirk Bourne MD Unavailable Unavaila ble Kirk Bourne MD Unavailable Unavaila ble Encounter Details Date Type Department Care Team Description 10/12/2014 Transfer Records Medical Records [address] [place] [address] Abstract, Provider Social History Tobacco Use Types Packs/Day Years [...] on filedocumented in this encounter Care Teams Cyber Systems Engineer Relationship Specialty Start Date End Date Shadia Iverson MD PCP - General Internal Medicine 09/12/14 05/28/15 Mickey Tabares MD [address] [place] [address] PCP - General Internal Medicine 05/29/15 Sena Yu MD [address] [place] [address] [phone] Specialist Lung Cancer Waste Reclaimer 11/27/21 Av Smith MD [address] [place] [phone] Specialist Pulmonology 11/27/21 Kirk Bourne MD [address] [place] [phone] Specialist Internal Medicine 11/27/21 Kirk Bourne MD [address] [place] [phone] Specialist Internal Medicine 11/27/2111/27 documented as of this encounter
--- OUTSIDE RECORDS SUMMARY | 2025-01-02 14:54 | XMS_ITS | Encounter Summary ---
Author Organization [facility] Address [address] [place] [address] Care Team Providers Care Supervisor Facepiece Line Name Role Phone Mickey Tabares MD Primary Care Provider [phone] Sena uY MD Unavailable Av Smith MD Unavailable Kirk Bourne MD Unavailable Unavaila Kirk Sánchez MD Unavailable Unavaila lise Encounter Details Date Type Department Care Team Description 06/02/2019 Telephone Adult Medicine - [place] [address] [place] [address] Alissa Wayne PA-C [address] [place] [address] Social History Tobacco Use Types Packs/Day Years [...] encounter Miscellaneous Notes * Telephone Encounter - Crystal Mendes M.A. - 06/02/2019 8:31 AM EDT Left message to patient to call office back * Telephone Encounter - Crystal Mendes M.A. - 06/02/2019 8:31 AM EDT ----- Message from Alissa Wayne PA-C sent at 06/01/2019 6:29 PM EDT ----- Please call pt and relay MyChart message - Your urine culture is positive for infection but it is resistant to the Bactrim you have been prescribed to treat it. Stop the Bactrim and start taking Nitrofurantoin, I have sent a prescription to the pharmacy for this. documented in this encounter Plan of Treatment Not on file documented as of this encounter Visit Diagnoses Not on filedocumented in this encounter Care Teams Supervisor Facepiece Line Relationship Specialty Start Date End Date Mickey Tabares MD [address] [place] [address] PCP - General Internal Medicine 05/29/15 Sena uY MD [address] [place] [address] Specialist Lung Cancer Educational Director 11/27/21 Av Smith MD [address] [place] [phone] Specialist Pulmonology 11/27/21 Kirk Bourne MD [address] [place] [phone] Specialist Internal Medicine 11/27/21 Kirk Bourne MD [address] [place] [phone] Specialist Internal Medicine 11/27/2111/27 documented as of this encounter
--- OUTSIDE RECORDS SUMMARY | 2025-01-02 14:54 | XMS_ITS | Encounter Summary ---
Author Organization [facility] [employer] [facility] Address [address] [place] [address] Care Team Providers Care Director Of Alumni Relations Name Role Phone Mickey Tabares MD Primary Care Provider [phone] Sena Yu MD Unavailable Av Smith MD Unavailable Kirk Bourne MD Unavailable Unavaila ble Kirk Bourne MD Unavailable Unavaila ble Encounter Details Date Type Department Care Team Description 03/08/2019 Release of Information Medical Records [address] [place] [address] Abstract, Provider Social History Tobacco Use Types [...] on filedocumented in this encounter Care Teams Director Of Alumni Relations Relationship Specialty Start Date End Date Mcikey Tabares MD [address] [place], [place] [phone] PCP - General Internal Medicine 05/29/15 Sena Yu MD [address] [place] [address] [phone] Specialist Lung Cancer Administrative Judge 11/27/21 Av Smith MD [address] [place] [address] Specialist Pulmonology 11/27/21 Kirk Bourne MD [address] [place] [phone] Specialist Internal Medicine 11/27/21 Kirk Bourne MD [address] [place] [address] Specialist Internal Medicine 11/27/2111/27 documented as of this encounter
--- OUTSIDE RECORDS SUMMARY | 2025-01-02 14:54 | XMS_ITS | Encounter Summary ---
Author Organization [facility] Address [address] [place] [address] Care Team Providers Care Protective Signal Installer Name Role Phone Mickey Tabares MD Primary Care Provider [phone] Sena Yu MD Unavailable Av Smith MD Unavailable Kirk Bourne MD Unavailable Unavaila ble Kirk Bourne MD Unavailable Unavaila ble Reason for Visit * Reason Onset Date Comments REFERRAL 05/24/2018 Encounter Details Date Type Department Care Team Description 05/24/2018 Telephone Adult Medicine [address] [address] Alison Guevara FNP REFERRAL Social History Tobacco Use Types Packs/Day Years [...] encounter Miscellaneous Notes * Telephone Encounter - Lydia Kirby - 05/24/2018 11:30 AM EDT We are unable to reach your patient to schedule their referral for the Returner Department. Numerous attempts have been made and a letter has been sent to the patient. The patient is being taken off the work que at this time. Thank you, Lawn Service Manager department documented in this encounter Plan of Treatment Not on file documented as of this encounter Visit Diagnoses Not on filedocumented in this encounter Care Teams Protective Signal Installer Relationship Specialty Start Date End Date Mickey Tabares MD [address] [place] [address] PCP - General Internal Medicine 05/29/15 Sena Yu MD [address] [place] [address] Specialist Lung Cancer Drilling And Production Superintendent 11/27/21 Av Smith MD [address] [place] [phone] Specialist Pulmonology 11/27/21 Kirk Bourne MD [address] [place] [phone] Specialist Internal Medicine 11/27/21 Kirk Bourne MD [address] [place] [phone] Specialist Internal Medicine 11/27/2111/27 documented as of this encounter
--- OUTSIDE RECORDS SUMMARY | 2025-01-02 14:54 | XMS_ITS | Encounter Summary ---
Author Organization [facility] Address [address] [place] [address] Care Team Providers Care Road Mender Name Role Phone Nichole Agrawal DMD Primary Care Provider [phone] Encounter Details Date Type Department Care Team ([facility] st Contact Info) Description 09/11/2022 Dental Interim Note [facility] [address] [place] [phone] Shadia Fitzgerald [address] [place] [address] Gingivitis, chronic, plaque induced (Primary Dx) Social History Tobacco Use Types Packs/Day Years Used Date Smoking Tobacco: Every Day Cigarettes Smokeless Tobacco: Never Social Connections Answer Date Recorded Social Connections and Isolation 0 05/04/2019 Financial Resource Strain Answer Date R ecorded Financial Resource Strain 0 2018 Stress Answer Date Recorded Stress 0 05/04/2019 Physical Activity Answer Date Recorded Physical Activity 0 05/04/2019 Food Insecurity Answer Date Recorded Food 0 05/04/2019 Transportation Needs Answer Date Record ed Transportation 0 05/04/2019 Housing Stability Answer Date Recorded Housing 0 05/04/2019 Safety and Environment Answer Date Mu rded Safety 0 05/04/2019 Utilities Answer Date Recorded Utilities 0 05/04/2019 Employment Answer Date Recorded Employment 0 05/04/2019 Comments Unknown Sex and Gender Information Value Date Recorded Sex Assigned at Not on file Legal Sex Female 12:42 PM PDT Gender Identity Not on file Sexual Orientation Not on file COVID-19 Exposure Response Date Recorded In the last 10 days, have yo u been in contact with someone who was confirmed or suspected to have Coronavirus/COVID-19? No / Unsure 09/11/2022 2:38 PM EST documented as of this encounter Plan of Treatment Upcoming Encounters Date Type Department Care Team (Late st Contact Info) Description 03/26/2025 9:00 AM EDT Office Visit [facility] [address] [place] [address] Lia Shadia [address] [place] [address] documented as of this encounter Visit Diagnoses Diagnosis Gingivitis, chronic, plaque induced- Primary Chronic gingivitis, plaque induced documented in this encounter Care Teams Road Mender Relationship Specialty Start Date End Date Nichole Agrawal DMD [address] [place] [address] PCP - General 11/01/20 documented as of this encounter
--- OUTSIDE RECORDS SUMMARY | 2025-01-02 14:54 | XMS_ITS | Encounter Summary ---
Author Organization [facility] [employer] [facility] Address [address] [place] [address] Care Team Providers Care Electronic Pagination System Operator Name Role Phone Mickey Tabares MD Primary Care Provider [phone] Sena Yu MD Unavailable Av Smith MD Unavailable Kirk Bourne MD Unavailable Unavaila ble Encounter Details Date Type Department Care Team Description 08/05/2023 Orders Only Medical Records [address] [place] [address] Vaishali Brooke NP Social History Tobacco Use Types Packs/Day Years [...] on file documented as of this encounter Procedures Procedure Name Priority Date/Time Associated Diagnosis Comments OUTSIDE PLAIN FILM Routine 07/26/2023 documented in this encounter Results * OUTSIDE PLAIN FILM (07/26/2023) Vaishali Brooke NP RADIOLOGY documented in this encounter Visit Diagnoses Not on filedocumented in this encounter Care Teams Electronic Pagination System Operator Relationship Specialty Start Date End Date Mickey Tabares MD [address] [place] [address] PCP - General Internal Medicine 05/29/15 Sena Yu MD [address] [place] [address] Specialist Lung Cancer Poker Manager 11/27/21 Av Smith MD [address] [place] [phone] Specialist Pulmonology 11/27/21 Kirk Bourne MD [address] [place] [address] Specialist Internal Medicine 11/27/21 documented as of this encounter
--- OUTSIDE RECORDS SUMMARY | 2025-01-02 14:54 | XMS_ITS | Encounter Summary ---
Author Organization [facility] Address [address] [place] [address] Care Team Providers Care Computer Discovery Teacher Name Role Phone Shadia Iverson MD Primary Care Provider Mickey Win MD Primary Care Provider Sena Yu MD Unavailable Av Smith MD Unavailable Kirk Bourne MD Unavailable Unavaila ble Kirk Bourne MD Unavailable Unavaila ble Encounter Details Date Type Department Care Team Description 10/31/2014 Pt. Referral Request [address] [address] Md Umesh Social History Tobacco Use Types [...] on filedocumented in this encounter Care Teams Computer Discovery Teacher Relationship Specialty Start Date End Date Shadia Iverson MD PCP - General Internal Medicine 09/12/14 05/28/15 Mickey Tabares MD [address] [place] [address] PCP - General Internal Medicine 05/29/15 Sena Yu MD [address] [place] [address] Specialist Lung Cancer Concrete Products Dispatcher 11/27/21 Av Smith MD [address] [place] [phone] Specialist Pulmonology 11/27/21 Kirk Bourne MD [address] [place] [phone] Specialist Internal Medicine 11/27/21 Kirk Bourne MD [address] [place] [phone] Specialist Internal Medicine 11/27/2111/27 documented as of this encounter
--- OUTSIDE RECORDS SUMMARY | 2025-01-02 14:54 | XMS_ITS | Encounter Summary ---
Author Organization [facility] Address [address] [place] [address] Care Team Providers Care Computing Systems Mechanic Name Role Phone Mickey Tabares MD Primary Care Provider [phone] Sena Yu MD Unavailable Av Smith MD Unavailable Kirk Bourne MD Unavailable Unavaila ble Encounter Details Date Type Department Care Team Description 12/09/2022 Locks Tender Report Medical Records [address] [place] [address] Center[facility] [address] [place] [address] Social History Tobacco Use Types Packs/Day Years [...] on filedocumented in this encounter Care Teams Computing Systems Mechanic Relationship Specialty Start Date End Date Mickey Tabares MD [address] [place] [address] [phone] PCP - General Internal Medicine 05/29/15 Sena Yu MD [address] [place] [address] Specialist Lung Cancer Supervisor Fleshing 11/27/21 Av Smith MD [address] [place] [phone] Specialist Pulmonology 11/27/21 Kirk Bourne MD [address] [place] [address] Specialist Internal Medicine 11/27/21 documented as of this encounter
--- OUTSIDE RECORDS SUMMARY | 2025-01-02 14:54 | XMS_ITS | Encounter Summary ---
Author Organization [facility] [facility] Address [address] [place] [address] Care Team Providers Care Endoscopy Specialty Technician Name Role Phone Mickey Tabares MD Primary Care Provider [phone] Sena Yu MD Unavailable Av Smith MD Unavailable Kirk Bourne MD Unavailable Unavaila ble Encounter Details Date Type Department Care Team Description 09/29/2022 Aircraft Engine Assembler Report Medical Records [address] [place] [address] Kirk Bourne MD Social History Tobacco Use [...] suspected to have Coronavirus/COVID-19? No / Unsure 09/01/2022 2:03 PM EST documented as of this encounter Plan of Treatment Not on file documented as of this encounter Visit Diagnoses Not on filedocumented in this encounter Care Teams Endoscopy Specialty Technician Relationship Specialty Start Date End Date Mickey Tabares MD [address] [place] [address] PCP - General Internal Medicine 05/29/15 Sena Yu MD [address] [place] [address] Specialist Lung Cancer Senior Mobile Solutions Architect 11/27/21 Av Smith MD [address] [place] [phone] Specialist Pulmonology 11/27/21 Kirk Bourne MD [address] [place] [address] Specialist Internal Medicine 11/27/21 documented as of this encounter
--- OUTSIDE RECORDS SUMMARY | 2025-01-02 14:54 | XMS_ITS | Encounter Summary ---
Author Organization [facility] Address [address] [place] [address] Care Team Providers Care Core Microarchitect Name Role Phone Mickey Tabares MD Primary Care Provider [phone] Sena Yu MD Unavailable Av Smith MD Unavailable Kirk Bourne MD Unavailable Unavaila ble Encounter Details Date Type Department Care Team Description 03/12/2022 Release of Information Medical Records [address] [place] [address] Abstract, Provider Social History Tobacco Use Types [...] suspected to have Coronavirus/COVID-19? No / Unsure 03/06/2022 9:26 AM EDT documented as of this encounter Plan of Treatment Not on file documented as of this encounter Visit Diagnoses Not on filedocumented in this encounter Care Teams Core Microarchitect Relationship Specialty Start Date End Date Mickey Tabares MD [address] [place] [address] PCP - General Internal Medicine 05/29/15 Sena Yu MD [address] [place] [address] Specialist Lung Cancer Refinery Operator Crude Unit 11/27/21 Av Smith MD [address] [place] [phone] Specialist Pulmonology 11/27/21 Kirk Bourne MD [address] [place] [address] Specialist Internal Medicine 11/27/21 documented as of this encounter
--- OUTSIDE RECORDS SUMMARY | 2025-01-02 14:54 | XMS_ITS | Encounter Summary ---
Author Organization [facility] Address [address] [place] [address] Care Team Providers Care Section Hand Helper Name Role Phone Mickey Tabares MD Primary Care Provider [phone] Sena Yu MD Unavailable Av Smith MD Unavailable Kirk Bourne MD Unavailable Unavaila ble Kirk Bourne MD Unavailable Unavaila ble Reason for Visit * Reason Onset Date Comments Prior Authorization 12/29/2019 Mike Encounter Details Date Type Department Care Team Description 12/29/2019 Telephone Rheumatology - [address] [address] Kirk Bourne MD Prior Authorization (Mike) Social History Tobacco Use Types Packs/Day Years [...] Telephone Encounter - Chen Fatima M.A. - 12/29/2019 9:28 AM EDT Faxed to pharmacy * Telephone Encounter - Chen Fatima M.A. - 12/29/2019 9:21 AM EDT Pended, pharmacy would reach out if PA is needed or there's a problem with the script. * Telephone Encounter - Kirk Bourne MD - 12/29/2019 9:16 AM EDT I redid the PA with CMM Same response. ? Let us send in the prescription again Kirk Bourne MD * Telephone Encounter - Chen Fatima M.A. - 12/29/2019 8:25 AM EDT PA submitted through CoverMyMeds. Response stating Available without authorization . Perhaps, it needs to be submitted today, 12/29/19 since previous PA did not until today. documented in this encounter Plan of Treatment Not on file documented as of this encounter Visit Diagnoses Diagnosis Psoriatic arthritis (HCC) Psoriatic arthropathy documented in this encounter Care Teams Section Hand Helper Relationship Specialty Start Date End Date Mickey Tabares MD [address] [place] [address] PCP - General Internal Medicine 05/29/15 Snea Yu MD [address] [place] [address] Specialist Lung Cancer Grizzly Worker 11/27/21 Av Smith MD [address] [place] [phone] Specialist Pulmonology 11/27/21 Kirk Bourne MD [address] [place] [phone] Specialist Internal Medicine 11/27/21 Kirk Bourne MD [address] [place] [phone] Specialist Internal Medicine 11/27/2111/27 documented as of this encounter
--- OUTSIDE RECORDS SUMMARY | 2025-01-02 14:54 | XMS_ITS | Encounter Summary ---
Author Organization [facility] Address [address] [place] [address] Care Team Providers Care Engraver Wood Name Role Phone Mickey Tabares MD Primary Care Provider [phone] Sena Yu MD Unavailable Av Smith MD Unavailable Kirk Bourne MD Unavailable Unavaila ble Encounter Details Date Type Department Care Team Description 09/15/2022 Pt. Non Urgent Medical Question Adult Medicine - [address] [phone] Mickey Tabares MD [address] [place] [address] Social History Tobacco Use Types Packs/Day Years [...] PM EST documented as of this encounter Miscellaneous Notes * Telephone Encounter - Karen Rogers 09/15/2022 2:42 PM ESTFrom: Lana Wang To: Lucy Tabares Sent: 09/15/2022 2:41 PM EST Subject: Referral to a Orthopedic Specialist On my last visit to Dr Tabares he was suppose to refer me to a Orthopedic Specialist. I never received a call from any one. Could you check this out for me. Thank You documented in this encounter Plan of Treatment Not on file documented as of this encounter Visit Diagnoses Not on filedocumented in this encounter Care Teams Engraver Wood Relationship Specialty Start Date End Date Mickey Tabares MD [address] [place] [address] PCP - General Internal Medicine 05/29/15 Sena uY MD [address] [place] [address] Specialist Lung Cancer Dog Obedience Instructor 11/27/21 Av Smith MD [address] [place] [phone] Specialist Pulmonology 11/27/21 Kirk Bourne MD [address] [place] [address] Specialist Internal Medicine 11/27/21 documented as of this encounter
--- OUTSIDE RECORDS SUMMARY | 2025-01-02 14:54 | XMS_ITS | Encounter Summary ---
Author Organization [facility] Address [address] [place] [address] Care Team Providers Care Auto Service Dispatcher Name Role Phone Mickey Tabares MD Primary Care Provider [phone] Sena Yu MD Unavailable Av Smith MD Unavailable Kirk Bourne MD Unavailable Unavaila ble Kirk Bourne MD Unavailable Unavaila ble Encounter Details Date Type Department Care Team Description 07/07/2018 Ambulatory Blood Pressure Monitoring Medical Records [address] [place] [id number] Abstract, Provider Social History Tobacco Use Types [...] on filedocumented in this encounter Care Teams Auto Service Dispatcher Relationship Specialty Start Date End Date Mickey Tabares MD [address] [place], [place] [phone] PCP - General Internal Medicine 05/29/15 Sena Yu MD [address] [place] [address] [phone] Specialist Lung Cancer Assisted Living Assistant 11/27/21 Av Smith MD [address] [place] [phone] Specialist Pulmonology 11/27/21 Kirk Bourne MD [address] [place] [phone] Specialist Internal Medicine 11/27/21 Kirk Bourne MD [address] [place] [address] Specialist Internal Medicine 11/27/2111/27 documented as of this encounter
[2025-01-02 15:12] LABS: Erythrocyte Sedimentation Rate 2 MM/HR (0-20)
== END 2025-01-02 13:45 | disposition home or self-care (01) ==
LOC: HO.LAB 13:44
PROVIDERS: PCP Internal Medicine; Visit Provider Student in an Organized Health Care Education/Training Program
DX: L40.50 Arthropathic psoriasis, unspecified (principal)
CPT/HCPCS: 36415; 80053; 85025; 85652; 86140

== ENCOUNTER 2025-01-30 08:32 | Outpatient (AMB) | payer MEDICARE, MEDICAID, SELFPAY ==
--- OUTSIDE RECORDS SUMMARY | 2025-01-30 08:50 | XMS_ITS | Encounter Summary ---
Author Organization [facility] Address [address] [place] [address] Care Team Providers Care Sweater Operator Name Role Phone Mickey Tabares MD Primary Care Provider [phone] Sena Yu MD Unavailable Av Smith MD Unavailable Kirk Bourne MD Unavailable Unavaila ble Kirk Bourne MD Unavailable Unavaila lise Encounter Details Date Type Department Care Team Description 06/30/2021 Pt. Non Urgent Medical Question Adult Medicine - [address] [address] Mickey Tabares MD [address] [place] [phone] Social History Tobacco Use Types Packs/Day Years [...] Miscellaneous Notes * Telephone Encounter - Karen Phillips Oc - 06/30/2021 1:56 PM ESTFrom: Lana Wang To: Lucy Tabares Sent: 06/30/2021 1:56 PM EST Subject: Follow up care after hospital stay. I called you're office last (06-25). After speaking with the nurse she told me to go to the ER. I was admitted and had pneumonia, leukocytosis and a cough. I am going to be needing some follow up care within the next 2 to 3 weeks .I don't no if [facility] sends you the info. I will be needing another Chest X-Ray a fter the pneumonia clears to see whether or not there might be a mass on my lung. They also suggested getting tested for COPD. I can be reached most days after 1pm or anytime on a Wednesday. Thank You Lana Wang. documented in this encounter Plan of Treatment Not on file documented as of this encounter Visit Diagnoses Not on filedocumented in this encounter Care Teams Sweater Operator Relationship Specialty Start Date End Date Mickey Tabares MD [address] [place] [address] PCP - General Internal Medicine 05/29/15 Sena Yu MD [address] [place] [address] Specialist Lung Cancer Formula Weigher 11/27/21 Av Smith MD [address] [place] [phone] Specialist Pulmonology 11/27/21 Kirk Bourne MD [address] [place] [phone] Specialist Internal Medicine 11/27/21 Kirk Bourne MD [address] [place] [phone] Specialist Internal Medicine 11/27/2111/27 documented as of this encounter
--- NOTE | 2025-01-30 08:59 | MHC.OFFVIS ---
Vital Signs 01/30/25 09:04 Height 5 ft 7 in Weight 142 lb 6.698 oz BMI 22.3 BP 112/70 Blood Pressure Location Lt brachial Position Sitting Pulse 74 Pulse Source Pulse Oximeter Pulse Oximetry (%) 94 Oxygen Delivery Method Room Air Intake Visit Reasons: PSA Intake Note: Patient presents for PsA follow up. Allergies No Known Allergies Allergy (Verified 01/30/25 09:03) Medication List - Last Reconciled 01/30/25 by Layla Chapa MD buprenorphine-naloxone 1.4-0.36 mg (Zubsolv) 1 tab sublingual DAILY bupropion HCl XL (Wellbutrin XL) 300 mg PO QAM clonazepam 0.5 mg PO BID PRN clonidine HCl 0.2 mg PO BEDTIME PRN Humira(CF) Pen (adalimumab) 40 mg (0.4 mL) subcut Q2W NS levothyroxine 150 mcg PO DAILY lisinopril 2.5 mg PO DAILY quetiapine (Seroquel) 200 mg PO DAILY sulfasalazine 500 mg PO QID 90 days umeclidinium-vilanterol 62.5-25 mcg/actuation 1 inh inhalation DAILY HPI Comments Details: Patient is a 68-year-old female with hypertension, hypothyroidism, history of hepatitis C status post treatment (remission achieved 11/2016) who presents for follow up of psoriasis and psoriatic arthritis Interval History: Patient last seen 09/07/24 with me. At that time she was on Humira and sulfasalazine therapy without new psoriatic rashes and stable joint pain Today, Rheumatologic History: Diagnosed with psoriatic arthritis in 2018. Started on sulfasalazine and Humira was added 12/2018 due to inefficacy of sulfasalazine. Current Rheumatology Medication(s): Humira 40 mg every 2 weeks Sulfasalazine 500 mg 4 times a day [facility] Medical History (Updated 09/07/24 @ 09:11 by Layla Chapa MD) Adalimumab (Humira) long-term use Bilateral primary osteoarthritis of knee Surgical History Hx of colonoscopy History of surgery H/O breast biopsy Family History Mother Stroke Hypertension Arthritis Father Cirrhosis Liver cancer Social History Household Members Other:: lives alone Housing: Other Housing Other:: Mobile home Are you a primary reproductive healthcare assistant to a significant other at home: No Do you presently have visiting nurse or other home services: No 75 years or older and lives alone: No Alcohol intake: never Tobacco use type: Cigarette Cigarettes Per Day: 7 Years Smoked: 35 years e-Cigarette/Vaping Use: Never Used service: No Current occupational status: retired Review of Systems Const Details: Review of Systems Constitutional: Denies fever, chills, weight loss ENT: Denies vision changes, eye pain or eye redness, dental caries, dry mouth GI: Denies nausea, vomiting, diarrhea, abdominal pain, change in BM Pulm: Denies SOB, BUCK, hemoptysis, wheezing Cards: Denies chest pain, palpitations Skin: Denies Raynaud's, rash, nail changes, photosensitivity. Reports severe dry skin to her hands SUPERVISOR CONTINGENTS: Denies headaches, weakness, paresthesias, recurrent falls MSK: as per HPI All other systems reviewed and are unremarkable except noted above Physical Exam Vital Signs: Last Vital Signs Pulse 74 01/30/25 09:04 BP 112/70 01/30/25 09:04 Pulse Ox 94 01/30/25 09:04 Oxygen Delivery Method Room Air 01/30/25 09:04 BMI result Body Mass Index 22.3 Vital signs reviewed Physical Examination CONSTITUITIONAL Patient alert and cooperative. Well appearing and in no apparent painful distress HEENT Conjunctiva and sclera clear. ?Pupils equal round and reactive to light. ?No lymphadenopathy. ? CHEST/RESPIRATORY SYSTEM Normal respiratory effort and able to speak in complete sentences. ?Clear to auscultation bilaterally. ?No crackles, rales, rhonchi, wheezes heard. CARDIAC SYSTEM Regular rate and rhythm. ?S1 and S2 heard no murmurs. ?Radial pulses intact bilaterally MSK Hands: ?Good rn community strength bilaterally.?No synovitis noted to the MCPs, PIPs or DIPs. ?No tenderness to palpation of these joints. Significant Heberden's nodes and Belen's nodes noted throughout hands. Wrists: ?Full range of motion at the wrists without pain. ?No tenderness to palpation or synovitis noted to the wrists. Elbows: Full range of motion without pain. No tenderness, weakness, swelling, increased warmth or erythema. Shoulders: Full range of motion without pain. No tenderness, weakness, swelling, increased warmth or erythema. Hips: Full range of motion without pain. Hip bursa: No tenderness to palpation Knees: ?Full range of motion. ?No tenderness, swelling, increased warmth or erythema.?No effusion or crepitations Ankles: Full range of motion. ?No tenderness, swelling, increased warmth or erythema.? Feet: ?Negative squeeze test. ?No tenderness to palpation or swelling of the MTPs. Tender points:?No tenderness to palpation of the bilateral trapezius, supraspinatus, greater trochanters, anterior costochondral junctions, bilateral gluteal areas, bilateral suboccipital muscle insertions SKIN Significant xerosis to bilateral hands Results Reviewed Results Reviewed: Laboratory Tests 01/02/25 13:55 WBC 5.6 RBC 4.20 Hgb 13.0 Hct 39.2 Plt Count 207 ESR 2 Sodium 138 Potassium 4.0 Chloride 101 Carbon Dioxide 29 BUN 14 Creatinine 0.79 AST 18 ALT 11 Alkaline Phosphatase 38 L C-Reactive Protein 0.15 Laboratory Tests 09/08/24 13:48 Hepatitis A IgM Ab Nonreactive Hep Bs Antigen Negative Hep Bs Antibody REACTIVE Hep B Core Total Ab Reactive Hep B DNA copies/mL NOT DETECTED Hep B DNA (IU/mL) NOT DETECTED Hepatitis C Ab (EIA) Reactive H Hep C Viral Load <15 NOT DETECTED Hep C Viral Load Log <1.18 NOT DETECTED Assessment & Plan Assessment & Plan (1) Psoriatic arthritis: Comment: Sulfasalazine since 05/10 Humira added 01/08, held for a few weeks due to rash Code(s): L40.50 - Arthropathic psoriasis, unspecified Category: Medical Plan: #Psoriatic Arthritis Patient is a 68-year-old female with psoriasis complicated by psoriatic arthritis on Humira and sulfasalazine. Currently in remission on her current medications. Plan - Humira 40mg SC every other week - Sulfasalazine 400mg qid. Will try to taper at next visit to twice a day - RTC 6 months - Labs prior to visit: CBC, CMP, ESR, CRP (2) Osteoarthritis of hands, bilateral: Code(s): M19.041 - Primary osteoarthritis, right hand; M19.042 - Primary osteoarthritis, left hand Category: Medical Qualifiers: Osteoarthritis type: other secondary Qualified Code(s): M19.241 - Secondary osteoarthritis, right hand; M19.242 - Secondary osteoarthritis, left hand Plan: #Bilateral Hand OA Bilateral hand OA. Overall stable not complaining of any morning stiffness or pain to the hands. (3) Screening for osteoporosis: Code(s): Z13.820 - Encounter for screening for osteoporosis Plan: #Screening for osteoporosis Patient due for osteoporosis screening Will order DEXA (4) Bilateral primary osteoarthritis of knee: Code(s): M17.0 - Bilateral primary osteoarthritis of knee Category: Medical Plan: #Bilateral Knee OA Bilateral knee osteoarthritis as confirmed by imaging of the left knee in 2018. At this time she states that her knees are doing well. In the future we can consider viscosupplementation if her knees worsen. (5) assisted use of drug: Code(s): Z79.899 - Other intermediate frame tender (current) drug therapy Category: Medical Plan: #Long-term Use of Sulphasalazine Discussed with patient the risks and benefits of sulfasalazine in the management of the rheumatic condition Benefits include: - Reduced pain, reduce mortality, maintenance of remission then reduction of flares Risks include: - GI upset, hemolysis (especially if G6PD deficiency), eosinophilia, headache, dizziness, rash, elevated LFTs (6) Adalimumab (Humira) long-term use: Code(s): Z79.620 - intermediate accountant (current) use of immunosuppressive biologic Category: Medical Plan: #Long-term Use of TNF Inhibitors: Humira Discussed with the patient the benefits and risks of TNF inhibitors for the management of the rheumatic condition Benefits include reduce pain, maintenance of remission and reduction of flares as well as ?progression of the disease Risks include injection sites/infusion reactions, serious infections (such as bacterial infections, opportunistic infections), malignancy, delaminating syndromes, autoimmune phenomena, CHF exacerbations, palmar plantar psoriasis and cytopenias Recommended rotating injection sites, and holding medication during and for up to 1 week after resolution of a febrile illness or open skin wound Plan I spent 20 minutes reviewing the record and labs, taking a history, examining the patient, discussing the treatment plan and documenting in the medical record Orders: Orders XR DEXA axial skeleton Today M81.0 - Age-related osteoporosis without current pathological fracture Vitamin D 25-OH Total 6 Months E55.9 - Vitamin D deficiency, unspecified Complete Blood Count Auto Diff 6 Months L40.50 - Arthropathic psoriasis, unspecified Comprehensive Met. Panel 6 Months L40.50 - Arthropathic psoriasis, unspecified C Reactive Protein 6 Months L40.50 - Arthropathic psoriasis, unspecified Erythrocyte Sedimentation Rate 6 Months L40.50 - Arthropathic psoriasis, unspecified Medications: Refilled Humira(CF) Pen (adalimumab) 40 mg (0.4 mL) subcut Q2W 2 ea 5RF NS L40.50 - Arthropathic psoriasis, unspecified sulfasalazine 500 mg PO QID 90 days 360 tabs 1RF L40.50 - Arthropathic psoriasis, unspecified Coding Level of Care Code Est Pt Level 3 (90112) Complex EM visit Add On G2211 Diagnoses Psoriatic arthritis L40.50 Other secondary osteoarthritis of both hands M19.241; M19.242 Osteoarthritis type: other secondary Screening for osteoporosis Z13.820 Bilateral primary osteoarthritis of knee M17.0 intermediate accountant use of drug Z79.899 Adalimumab (Humira) long-term use Z79.620
[2025-01-30 09:04] VITALS: BP 112/70; PULSE 74; O2SAT 94; BMI 22.3
== END 2025-01-30 09:34 | disposition home or self-care (01) ==
LOC: HO.RHE 08:33
PROVIDERS: PCP Internal Medicine; Visit Provider Student in an Organized Health Care Education/Training Program
DX: L40.50 Arthropathic psoriasis, unspecified (principal); M19.241 Secondary osteoarthritis, right hand; M19.242 Secondary osteoarthritis, left hand; Z13.820 Encounter for screening for osteoporosis; M17.0 Bilateral primary osteoarthritis of knee; Z79.899 Other long term (current) drug therapy; Z79.620 Long term (current) use of immunosuppressive biologic
CPT/HCPCS: 99213; G2211

== ENCOUNTER → 2025-01-30 08:32 | Outpatient (BNVA) | payer MEDICARE, MEDICAID, SELFPAY | PROVIDERS: PCP Internal Medicine; Visit Provider Student in an Organized Health Care Education/Training Program | DX: L40.50 Arthropathic psoriasis, unspecified (principal); M19.241 Secondary osteoarthritis, right hand; M19.242 Secondary osteoarthritis, left hand; M17.0 Bilateral primary osteoarthritis of knee; Z79.899 Other long term (current) drug therapy; Z13.820 Encounter for screening for osteoporosis; Z79.620 Long term (current) use of immunosuppressive biologic | CPT/HCPCS: 99212 ==

== ENCOUNTER 2025-03-15 12:40 | Outpatient (REF) | payer MEDICARE, MEDICAID, SELFPAY ==
--- NOTE | ~2025-03-15 | MM_ITS ---
EXAMINATION: DXA BONE DENSITY AXIAL HISTORY: M81.0 - Age-related osteoporosis without current pathological fracture TECHNIQUE: Ayi Laile Dual energy absorptiometry (DEXA) of the lumbar spine, total left hip, and femoral neck was performed. COMPARISON: There are no prior studies for comparison. FINDINGS: The bone mineral density of the lumbar spine is 1.327 g/cm2, corresponding to a T-score of 1.2, and a Z-score of 2.9. This is indicative of normal bone mineral density. The bone mineral density of the left total hip is 0.772 g/cm2, corresponding to a T-score of -1.9, and a Z-score of -0.5. This is indicative of osteopenia. The bone mineral density of the left femoral neck is 0.800 g/cm2, corresponding to a T-score of -1.7, and a Z-score of -0.1. This is indicative of osteopenia. FRACTURE RISK: The FRAX index suggests a risk of major osteoporotic fracture of 13.0%, and of hip fracture 3.6%. MM/XR DEXA axial skeleton IMPRESSION: Based on bone mineral density, and according to World Health Organization (WHO) criteria, the diagnosis is consistent with osteopenia. Statistically, 68% of repeat scans fall within 1 SD (+/- 0.010 g/cm2 for AP spine L1-L4) and 1 SD (+/- 0.012 g/cm2 for femur total) FRAX is a trademark of the [employer] [place] [facility] Metabolic Bone Disease, a World Health Organization (WHO) Collaborating Center. Electronically signed by: Genaro Mccray MD 03/15/2025 01:11 PM EDT
--- OUTSIDE RECORDS SUMMARY | 2025-03-15 12:57 | XMS_ITS | Encounter Summary ---
Author Organization [facility] Address [address] [place] [address] Care Team Providers Care Web Production Designer Name Role Phone Nichole Agrawal DMD Primary Care Provider [phone] Encounter Details Date Type Department Care Team (Late st Contact Info) Description 09/11/2022 Dental Interim Note [facility] [address] [place] [phone] Shadia Fitzgerald [address] [place] [address] Social History Tobacco Use Types Packs/Day Years [...] Description 03/26/2025 9:00 AM EDT Office Visit [facility] [address] [place] [phone] Shadia Fitzgerald [address] [place] [address] documented as of this encounter Visit Diagnoses Diagnosis Gingivitis, chronic, plaque induced- Primary Chronic gingivitis, plaque induced documented in this encounter Care Teams Web Production Designer Relationship Specialty Start Date End Date Nichole Agrawal DMD [address] [place] [address] PCP - General 11/01/20 documented as of this encounter
--- OUTSIDE RECORDS SUMMARY | 2025-03-15 12:57 | XMS_ITS | Clinical Summary ---
Author Organization [facility] Address [address] [place] [address] Phone Care Team Providers Care Gasfitter Name Role Phone Eyad Rodgers MD Primary Care Provider [phone] Allergies No known active allergies Medications Anoro Ellipta 62.5-25 mcg/actuation inhaler INHALE 1 INHALATION BY MOUTH DAILY 180 each 3 4 Active buPROPion XL (WELLBUTRIN XL) 300 mg 24 hr tablet Take 1 tablet (300 mg total) by mouth 1 (one) time each day. Do not crush, chew, or split. Active sulfaSALAzine (AZULFIDINE EN-TABS) 500 mg EC tablet Take 1 tablet (500 mg total) by mouth 4 (four) times a day. Do not crush, chew, or split. Active adalimumab (HUMIRA) 40 mg/0.8 mL syringe Inject 0.8 mL (40 mg total) under the skin every 14 (fourteen) days. Active traZODone (DESYREL) 150 mg tablet Take 1 tablet (150 mg total) by mouth 2 (two) times a day with meals. Active cloNIDine (CATAPRES) 0.2 mg tablet Take 1 tablet (0.2 mg total) by mouth 4 (four) times a day. Takes 2 in morning and 2 in evening Active levothyroxine (SYNTHROID, LEVOTHROID) 150 mcg tablet Take 1 tablet (150 mcg total) by mouth 1 (one) time each day. 90 each 1 5 08/28/19 26 Active lisinopriL (PRINIVIL,ZEST RIL) 2.5 mg tablet Take 1 tablet (2.5 mg total) by mouth 1 (one) time each day. 90 each 1 5 08/28/19 26 Active levothyroxine (SYNTHROID, LEVOTHROID) 150 mcg tablet TAKE 1 TABLET BY MOUTH DAILY 30 tablet 5 03/01/20 25 Discontinu ed(Reorder ) lisinopriL (PRINIVIL,ZEST RIL) 2.5 mg tablet TAKE 1 TABLET BY MOUTH DAILY 30 tablet 5 03/01/20 25 Discontinu ed(Reorder ) Active Problems Problem Noted Date Diagnosed Date Hepatitis B virus infection 03/01/2025 Primary hypertension 02/20/2022 History of COVID-19 01/19/2022 Overview (03/01/2025): Home test 01/18/22 and 01/19/22 Liver lesion, right lobe 01/13/2021 Overview (03/01/2025): Ultrasound 02/27/2015: Stable echogenic mass in the posterior aspect of the right lobe of the liver most likely a hemangioma. 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 Smaller than on prior MRIs Pancreatic duct dilated 01/13/2021 Overview (03/01/2025): Ultrasound 02/27/2015:Interval enlargement of the pancreatic duct. MRI 06/19/2015:Mildly distended pancreatic duct, a new finding compared to 11/20/2014. An etiology is not delineated. Short interval followup ultrasound is suggested, with consideration of ERCP and/or repeat MRI if dilatation increases. MRI 06/03/2016:Mildly prominent irregular in shape pancreatic duct without associated pancreatic lesions. Psoriasis 09/13/2019 Psoriatic arthritis (CMS/HCC V24, CMS/HCC V28) 0 05/11/2018 Overview (03/01/2025): Sulfasalazine since 05/10 Humira added 01/08, held for a few weeks due to rash Allergic rhinitis due to allergen 08/03/2016 Hepatitis B core antibody positive 05/22/2015 Overview (03/01/2025): Also surface antibody positive. Osteoarthritis of left knee 05/08/2015 Anxiety and depression 09/12/2014 Hypothyroidism 09/12/2014 Osteoarthritis, hand 09/12/2014 Encounters Date Type Department Care Team Description 03/05/2025 9:19 AM EDT - 03/05/2025 11:59 PM EDT Hospital Encounter Ultrasound - [place] [address] [place] [address] LUQ pain Discharge Disposition: Home or Self Care 03/01/2025 1:00 PM EDT Office Visit Internal Medicine - [address] [address] Eyad Rodgers MD LUQ pain (Primary Dx); Hypothyroidism, unspecified type; Primary hypertension from Last 3 Months Immunizations Name Administration Dates Next Due Influenza Quadravalent, 0.5m l (Fluzone High-dose) 65yo and older 04/14/2023 Influenza Quadravalent, MDCK , 0.5ml, preservative free (Flucelvax) 6mo and older 07/03/2022,06/05/2021,05/04/2019,05/07 Influenza Quadrivalent, 0.5m l, preservative free (Fluarix; FluLaval; Fluzone) ages 6mo and older (Afluria) 3yo and older 04/18/2018 Influenza trivalent, 0.5mL ( Fluzone High-dose) 65yo and older 06/05/2024 Influenza trivalent, 0.5mL, preservative free (Fluarix; FluLaval; Fluzone) ages 6mo and older (Afluria) 3 years and older 04/15/2016 Influenza trivalent, with pr eservative (Fluzone; Afluria) 6mo and older 05/28/2020,05/22/2015,08/14/2014,09/07,05/27/2011 Pneumococcal polysaccharide 23 valent (Pneumovax 23) 2yo and older 12/05/2014 RSV, bivalent, protein subun it RSVpreF, 0.5mL, Preservative Free (Arexvy) 60yo and older 05/03/2023 Tdap Tetanus diptheria acell ular pertussis (Boostrix; Adacel) 7yo and older 12/06/2024,12/05/2014 Zoster Live 01/13/2017 Zoster recombinant (Shingrix ) 19yo and older 08/04/2021,04/18/2018 Surgical History Surgery Date Site/Laterality Comments FOOT SURGERY - 1999 PROCEDURE: CO UNLISTED PROCEDURE FOOT/TOES; COMMENT: surgical procedure remove lump from left sole COLONOSCOPY 10/19/2016 PROCEDURE: HISTORICAL COLONOSCOPY; COMMENT: [email or web address]; normal screening exam. BREAST BIOPSY Left PROCEDURE: BX BREAST; PERC NEEDLE CORE W/IMAG GUID; COMMENT: b9 Medical History Medical History Date Comments Anxiety and depression 09/12/2014 DX:Anxiet y and depression Hypothyroidism 09/12/2014 DX:Hypothyroidis m Chronic pain of left knee 09/12/2014 DX:Chr onic pain of left knee; COMMENT: ? Meniscal tear [facility] records not received Osteoarthritis, hand 09/12/2014 DX:Osteoart hritis, hand H/O: pneumonia DX:H/O: pneumoni a; COMMENT: 2007 aspiration with respiratory arrest. Cytology neg for malignant cells, Gauri present Osteoarthritis of left knee 05/08/2015 DX:O steoarthritis of left knee Hepatitis B core antibody positive 05/22/2015 DX:Hepatitis B core antibody positive History of hepatitis C 05/08/2015 DX:Histor y of hepatitis C; COMMENT: Chronic Hepatitis C Genotype 3 with low virus level and normal LFTs 05/12/2016. Tx Started 05/29/16 Epclusa 400-100 mg Take 1 Tab Daily for 12 Weeks. End Date 08/21/16. 08/21/2016: virus = zero = ETR. 12/01/2016: virus=zero=SVR. 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 Pancreatic duct dilated 01/13/2021 DX:Pancr eatic duct dilated; COMMENT: Ultrasound 02/27/2015:Interval enlargement of the pancreatic duct. MRI 06/19/2015:Mildly distended pancreatic duct, a new finding compared to 11/20/2014. An etiology is not delineated. Short interval followup ultrasound is suggested, with consideration of ERCP and/or repeat MRI if dilatation increases. MRI 06/03/2016:Mildly prominent irregular in shape pancrea* Liver lesion, right lobe 01/13/2021 DX:Live r lesion, right lobe; COMMENT: Ultrasound 02/27/2015: Stable echogenic mass in the posterior aspect of the right lobe of the liver most likely a hemangioma. Family History Medical History Relation Name Comments Other Brother ETOH? Cirrhosis Father drank alcohol, had liver cancer Arthritis Mother hands Stroke Mother htn htn Sister depression No Known Problems Son Breast cancer Neg Hx Colon cancer Neg Hx Ovarian cancer Neg Hx Relation Name Status Comments Brother Father Mother Sister x2 Son x2 Social History Tobacco Use Types Packs/Day Years Used Date Smoking Tobacco: Some Days Cigarettes 0.5 48.5 Started: 1975 Smokeless Tobacco: Never Tobacco Cessation:Ready to Q uit: Not Asked; Counseling Given: Not Answered Alcohol Use Standard Drinks/Week Comments No 0 (1 standard drink = 0.6 oz pur e alcohol) Housing Instability Answer Date Recorde d Are you worried that in the next 2 months you may not have stable housing? No 10/30/2024 Food Access & Nutrition Answer Date Rec orded Do you have access to a vari ety of food including fruits and vegetables? Yes 10/30/2024 Health Literacy Answer Date Recorded How often do you need to hav e someone help you when you read instructions, pamphlets, or other written material from your doctor or pharmacy? Never 10/30/2024 Caregiver: How often do you need to have someone help you when you read instructions, pamphlets, or other written material from your doctor or pharmacy? Not on file 10/30/2024 Financial Risk Answer Date Recorded How hard is it for you to pa y for the very basics like food, housing, medical care, and air conditioning / heating? Not very hard 10/30/2024 Transportation Answer Date Recorded Has the lack of transportati on kept you from meetings, work, or from getting things needed for daily living? No Has the lack of transportati on kept you from medical appointments or from getting medications? No 10/30/2024 Social Isolation Answer Date Recorded How often do you feel lonely or isolated from th ose around you? Never 10/30/2024 Food Risk Answer Date Recorded Within the past 12 months we worried whether our food would run out before we got money to buy more. Never true 10/30/2024 Within the past 12 months th e food we bought just didn't last and we didn't have money to get more. Never true 10/30/2024 Dependent Care Answer Date Recorded Do you need help finding or paying for care for your loved ones. For example, director child or elderly care for an older adult? No 10/30/2024 Education Answer Date Recorded Do you think completing more education or training, like finishing a GED, going to college, or learning a trade, would be helpful for you? No 10/30/2024 Employment and Income Answer Date Recor ded During the last four weeks, have you been actively looking for work? No 10/30/2024 Living Situation Answer Date Recorded What is your living situation? 0 10/30/2024 Comments No Sex and Gender Information Value Date Recorded Sex Assigned at Not on file Legal Sex Female 4:23 PM EST Gender Identity Not on file Sexual Orientation Not on file Obstetrics History Last Filed Vital Signs Vital Sign Reading Time Taken Comments Blood Pressure 104/54 03/01/2025 12:49 PM EDT Pulse 80 03/01/2025 12:49 PM EDT Temperature - - Respiratory Rate - - Oxygen Saturation - - Inhaled Oxygen Concentration - - Weight 63.5 kg (140 lb) 03/01/2025 12:49 PM EDT Height 170.2 cm (5' 7 ) 03/01/2025 12:49 PM EDT Body Mass Index 21.93 03/01/2025 12:49 PM EDT Plan of Treatment Upcoming Encounters Date Type Department Care Team (Late st Contact Info) Description 05/29/2025 2:20 PM EDT Consult Gastroenterology - [place] [address] [place] [address] Bianka Jesus PA [address] [place] [address] 09/03/2025 3:00 PM EST Office Visit Internal Medicine - [facility] [address] [place] [address] Eyad Rodgers MD [address] [place] [id number] Health Maintenance Due Date Last Done Comments Hepatitis A Vaccines (1 of 2 - Risk 2-dose series) 1975 Pneumococcal Vaccine: 50+ Years (2 of 2 - PCV) 12/06/2015 12/05/2014 Hepatitis B Vaccines (1 of 3 - Risk 3-dose series) 2016 COVID-19 Vaccine (6 - Pfizer risk 2023- season) 2024 06/05/2024, 07/10/2022, 08/04/2021, Additional history exists Influenza Vaccine (#1) 2025 , 04/14/2023, 07/03/2022, Additional history exists Medicare Annual Wellness Visit 10/30/2025 10/30/2024 Social Influencers of Health Screening 10/30/2025 10/30/2024 Lung Cancer Screening (Low Dose CT) 12/13/2025 12/13/2024, 12/10/2023, 12/09/2022, Additional history exists Falls Risk Assessment 03/01/2026 03/01/2025, 025 Hypertension/CHF/CAD Annual BMP Blood Test 03/01/2026 03/01/2025, 03/06/2024 Breast Cancer Screening 06/13/2026 06/13/20 24, 06/14/2023, 05/12/2022, Additional history exists Colorectal Cancer Screening: Colonoscopy 10/19/2026 10/19/2016 Osteoporosis Screening (Bone Density Screening) 01/10/2029 01/10/2019 Cholesterol Screening (Lipid Panel) 03/01/2030 03/01/2025, 03/06/2024, 03/06/2024 DTaP,Tdap,and Td Vaccines (3 - Td or Tdap) 12/06/2034 12/06/2024, 12/05/2014 Hepatitis C Screening Completed 10/10/2014 Zoster Vaccines Completed 08/04/2021, 03/24, 01/13/2017 RSV Immunization Adult Patients Completed 05/03/2023 Depression Screening Completed 02/28/2025 HIB Vaccines Aged Out No longer eligi ble based on patient's age to complete this topic HPV Vaccines Aged Out No longer eligi ble based on patient's age to complete this topic IPV Vaccines Aged Out No longer eligi ble based on patient's age to complete this topic MMR Vaccines Aged Out No longer eligi ble based on patient's age to complete this topic Meningococcal ACWY Vaccine Aged Out N o longer eligible based on patient's age to complete this topic Meningococcal B Vaccine Aged Out No l onger eligible based on patient's age to complete this topic RSV Immunization Patients Under 20 months Aged Out No longer eligible based on patient's age to complete this topic Varicella Vaccines Aged Out No longer eligible based on patient's age to complete this topic Procedures Procedure Name Priority Date/Time Associated Diagnosis Comments US ABDOMEN COMPLETE Routine 03/05/2025 1 0:10 AM EDT LUQ pain ALANINE AMINOTRANSFERASE Routine 03/01/2025 2:13 PM EDT Primary hypertension ASPARTATE AMINOTRANSFERASE Routine 03/01/2025 2:13 PM EDT Primary hypertension BASIC METABOLIC PANEL Routine 03/01/2025 2:13 PM EDT Primary hypertension LIPID PANEL WITH REFLEX TO DIRECT LDL Routine 03/01/2025 2:13 PM EDT Primary hypertension THYROID STIMULATING HORMONE Routine 03/01/2025 2:13 PM EDT Hypothyroidism, unspecified type EXTERNAL CLINICAL LAB 01/03/2025 CT LUNG SCREENING Routine 12/13/2024 1:0 4 PM EDT Encounter for screening for malignant neoplasm of respiratory organs Nicotine dependence, cigarettes, uncomplicated MAI SCREENING DIGITAL Routine 06/13/2024 9:49 AM EDT DXA BONE DENSITY STUDY 1+ SITS AXIAL SKEL Routine 01/10/2019 1:51 PM EDT Encounter for gynecological examination (general) (routine) without abnormal findings HM COLONOSCOPY Routine 10/19/2016 HEPATITIS C SCREENING Routine 10/10/2014 from Last 3 Months or Most Recently Relevant to Health Maintenance Results * US Abdomen Complete (03/05/2025 10:10 AM EDT) Anatomical Region Laterality Modality Body Radiographic Slime ging 03/05/2025 2:57 PM EDT Impressions 03/05/2025 3:02 PM EDT 1. Right hepatic lobe echogenic lesion which was previously thought to be an atypical hemangioma not significantly changed from prior MRI examination from 2015 2. Stable prominence of the pancreatic duct dating back to MRI 3. Right hepatic lobe cyst. -------- FINAL REPORT -------- Dictated By: Anton Shah Dictated Date: 03/05/2025 14:57 ET Assigned Physician: Anton Shah Reviewed and Electronically Signed By: Anton Shah Signed Date: 03/05/2025 15:02 ET Workstation ID: [id number] Transcribed By: Self Edit Transcribed Date: 03/05/2025 14:57 ET Narrative 03/05/2025 3:02 PM EDT Exam: Complete abdominal ultrasound History: luq pain-- chronic Technique: Farley scale and color Doppler imaging was utilized. Comparison: Ultrasound right upper quadrant from 01/15/2021, MRI abdomen from 06/03/2016 FINDINGS: Liver: normal in echotexture. The liver measures 13.6 cm. There is an echogenic mass within the right hepatic lobe measuring 2.1 x 1.7 x 2.7 cm, previously measuring 2.5 x 2.1 x 1.9 cm. Within the right hepatic lobe is a 1.0 x 0.5 x 0.7 cm anechoic thin- walled cyst. There is no evidence of intrahepatic biliary ductal dilation. There is no ascites. Gallbladder: no gallbladder stone, wall thickening or pericholecystic fluid. Common bile duct: measures 0.5 cm. Right kidney: measures 10.8 cm in length and is sonographically unremarkable. Left kidney: 11.0 cm in length and is sonographically unremarkable. There is no hydronephrosis. Spleen: No splenomegaly. The spleen measures 10.1 cm and demonstrates normal echotexture. Pancreas: The visualized pancreatic parenchyma is unremarkable. The pancreatic head and tail were not visualized due to overlying bowel gas. Stable prominence of the pancreatic duct measuring 0.4 cm. Abdominal aorta: normal in caliber on a survey view. IVC was visualized. No focal abnormality within the left lower quadrant in area of clinical pain. Procedure Note Anton Shah MD - 03/05/2025 Exam: Complete abdominal ultrasound History: luq pain-- chronic Technique: Farley scale and color Doppler imaging was utilized. Comparison: Ultrasound right upper quadrant from 01/15/2021, MRI abdomenfrom 06/03/2016 FINDINGS: Liver: normal in echotexture. The liver measures 13.6 cm. There is anechogenic mass within the right hepatic lobe measuring 2.1 x 1.7 x 2.7 cm,previously measuring 2.5 x 2.1 x 1.9 cm. Within the right hepatic lobe day 1.0 x 0.5 x 0.7 cm anechoic thin-walled cyst. There is no evidence ofintrahepatic biliary ductal dilation. There is no ascites. Gallbladder: no gallbladder stone, wall thickening or pericholecysticfluid. Common bile duct: measures 0.5 cm. Right kidney: measures 10.8 cm in length and is sonographicallyunremarkable. Left kidney: 11.0 cm in length and is sonographically unremarkable. There is no hydronephrosis. Spleen: No splenomegaly. The spleen measures 10.1 cm and demonstratesnormal echotexture. Pancreas: The visualized pancreatic parenchyma is unremarkable. Thepancreatic head and tail were not visualized due to overlying bowel gas.Stable prominence of the pancreatic duct measuring 0.4 cm. Abdominal aorta: normal in caliber on a survey view. IVC wasvisualized. No focal abnormality within the left lower quadrant in area of clinicalpain. IMPRESSION: 1. Right hepatic lobe echogenic lesion which was previously thought to lópez atypical hemangioma not significantly changed from prior MRIexamination from 2015 2. Stable prominence of the pancreatic duct dating back to MRI 3. Right hepatic lobe cyst. -------- FINAL REPORT -------- Dictated By: Anton Shah Dictated Date: 03/05/2025 14:57 ET Assigned Physician: Anton Shah Reviewed and Electronically Signed By: Anton Shah Signed Date: 03/05/2025 15:02 ET Workstation ID: [id number] Transcribed By: Self Edit Transcribed Date: 03/05/2025 14:57 ET Eyad Rodgers MD IM US PROCEDURES Final Result * (ABNORMAL) Lipid panel with reflex to direct LDL (03/01/2025 2:13 PM EDT) Cholesterol 208(H) 0 - 200 mg/dL LAB CHEMISTRY METHOD 03/01/2025 6:15 PM EDT [facility] Triglycerides 102 0 - 150 mg/dL LAB CHEMISTRY METHOD 03/01/2025 6:15 PM EDT [facility] HDL 66 >=40 mg/dL LAB CHEMISTRY METHOD 03/01/2025 6:15 PM EDT [facility] LDL Calculated 122(H) 0 - 100 mg/dL LAB CHEMISTRY METHOD 03/01/2025 6:15 PM EDT [facility] VLDL Cholesterol Philip 20.4 mg/dL LAB CHEMISTRY METHOD 03/01/2025 6:15 PM EDT [facility] Non HDL Chol. (LDL+VLDL) 142 <145 mg/dL LAB CHEMISTRY METHOD 03/01/2025 6:15 PM EDT [facility] Chol/HDL Ratio 3.2 0.0 - 4.4 LAB CHEMISTRY METHOD 03/01/2025 6:15 PM EDT [facility] Blood Venous blood specimen / Unknown Venipuncture / Unknown 03/01/2025 2:13 PM EDT 03/01/2025 2:13 PM EDT Eyad Rodgers MD LAB BLOOD ORDERABLES Final Res ult [facility] [address] [place] [address], * Alanine aminotransferase (03/01/2025 2:13 PM EDT) ALT (SGPT) 20 10 - 60 unit/L LAB CHEMISTRY METHOD 03/01/2025 6:15 PM EDT [facility] Blood Venous blood specimen / Unknown Venipuncture / Unknown 03/01/2025 2:13 PM EDT 03/01/2025 2:13 PM EDT us Eyad Rodgers MD LAB BLOOD ORDERABLES Final Res ult Performing Organization Address City/[facility]/ZIP Co de Phone Number [facility] [address] [place] [address], [place] [phone] * Aspartate aminotransferase (03/01/2025 2:13 PM EDT) Pathologist [facility] AST (SGOT) 20 10 - 42 unit/L LAB CHEMISTRY METHOD 03/01/2025 6:15 PM EDT [facility] Blood Venous blood specimen / Unknown Venipuncture / Unknown 03/01/2025 2:13 PM EDT 03/01/2025 2:13 PM EDT us Eyad Rodgers MD LAB BLOOD ORDERABLES Final Res ult Performing Organization Address City/[facility]/ZIP Co de Phone Number [facility] [address] [place] [address], [place] [phone] * Thyroid stimulating hormone (03/01/2025 2:13 PM EDT) TSH 2.84 0.40 - 4.00 mcIU/mL LAB CHEMISTRY METHOD 03/01/2025 7:27 PM EDT [facility] Blood Venous blood specimen / Unknown Venipuncture / Unknown 03/01/2025 2:13 PM EDT 03/01/2025 2:13 PM EDT us Eyad Rodgers MD LAB BLOOD ORDERABLES Final Res ult [facility] [address] [place] [address], * (ABNORMAL) Basic metabolic panel (03/01/2025 2:13 PM EDT) Sodium 133 133 - 145 mmol/L LAB CHEMISTRY METHOD 03/01/2025 6:15 PM EDT [facility] Potassium 4.4 3.5 - 5.5 mmol/L LAB CHEMISTRY METHOD 03/01/2025 6:15 PM [facility] Chloride 98 96 - 110 mmol/L LAB CHEMISTRY METHOD 03/01/2025 6:15 PM [facility] CO2 32 21 - 32 mmol/L LAB CHEMISTRY METHOD 03/01/2025 6:15 PM [facility] Anion Gap 3 3 - 11 LAB CHEMISTRY METHOD 03/01/2025 6:15 PM [facility] Glucose 113(H) 70 - 100 mg/dL LAB CHEMISTRY METHOD 03/01/2025 6:15 PM [facility] BUN 13 5 - 25 mg/dL LAB CHEMISTRY METHOD 03/01/2025 6:15 PM [facility] Creatinine 0.86 0.50 - 1.10 mg/dL LAB CHEMISTRY METHOD 03/01[facility]25 [facility] e[facility] 74 >=60 mL/min/1. 73m2 LAB CHEMISTRY METHOD 03/01/2025 6:15 PM [facility] Comment:Calculation based on the Chronic Kidney Disease Epidemiology Collaboration (CKD-EPI) equation refit without adjustment for race. BUN/Creatinine Ratio 15.1 LAB CHEMISTRY METHOD 03/01/2025 6:15 PM [facility] Calcium 9.1 8.5 - 10.5 mg/dL LAB CHEMISTRY METHOD 03/01/2025 6:15 PM [facility] Blood Venous blood specimen / Unknown Venipuncture / Unknown 03/01/2025 2:13 PM EDT 03/01/2025 2:13 PM EDT Eyad Rodgers MD LAB BLOOD ORDERABLES Final Res ult [facility] [address] [place] [address], [place] [phone] * External clinical lab (01/03/2025) Provider [facility] LAB BLOOD ORDERABLES Fin al Result * CT Lung Screening (12/13/2024 1:04 PM EDT) Anatomical Region Laterality Modality Chest Computed Tomogra phy 12/14/2024 8:05 AM EDT Impressions 12/14/2024 8:18 AM EDT No suspicious mass or nodule. Scattered micronodules. No suspicious interval change LUNG RADS: Lung-RADS 2: BENIGN S Modifier (Significant or Potentially Significant Findings): None present No suspicious nonpulmonary findings. RECOMMENDATIONS: [address] month [address] low dose CT -------- FINAL REPORT -------- Dictated By: Adalberto Martino Dictated Date: 12/14/2024 08:05 ET Assigned Physician: Adalberto Martino Reviewed and Electronically Signed By: Adalberto Martino Signed Date: 12/14/2024 08:18 ET Workstation ID: [id number] Transcribed By: Self Edit Transcribed Date: 12/14/2024 08:05 ET Narrative 12/14/2024 8:18 AM EDT EXAMINATION: CT CHEST WITHOUT CONTRAST LUNG CANCER SCREENING, LOW DOSE CLINICAL INFORMATION: Lung cancer screening. Current smoker COMPARISON: Portions of previous 12/08/23 TECHNIQUE: Multidetector CT. Examination of the chest. Examination of the chest without IV contrast. Reformatting in the coronal and sagittal planes. Device: [employer] VCT DLP: 119 mGy-cm CTDI: 3.22 Dose optimization was performed including the use of low-dose iterative reconstruction technique with automatic exposure control based on patient size. Type of contrast: None Volume of IV contrast: None Volume of contrast discarded: 0 mL FINDINGS: LUNG: No abnormality of the trachea or mainstem bronchi. No focal pneumonia. LUNG NODULES: There are no suspicious nodules or masses. There are some micronodules including in the anterior right upper lobe and in the anterolateral left upper lobe which measures 0.3 cm or less and are unchanged. OTHER PULMONARY: There are some reticular abnormalities in the medial segment of the middle lobe which is unchanged. There is at least moderately severe centrilobular emphysema. There are a few linear opacities most numerous in the dependent lower lung zones but no evidence of honeycomb formation. MEDIASTINUM: There are no enlarged mediastinal or hilar lymph nodes. No suspicious abnormalities of the esophagus CARDIAC: The heart is not enlarged. There is a small amount of unchanged pericardial fluid or thickening. No coronary calcifications demonstrated. VASCULAR: The ascending aorta measures 3.8 cm. The main pulmonary artery measures 3.1 cm PLEURA: There is no pleural fluid or pneumothorax AXILLA/CHEST WALL: There are no enlarged axillary lymph nodes. No chest wall mass demonstrated VISUALIZED UPPER ABDOMEN: The stomach is dilated. There are coarse calcifications along the medial aspect of hepatic segment 7 unchanged. MUSCULOSKELETAL: No suspicious focal bony lesion demonstrated. Severe changes in the upper lumbar spine with sclerosis disc narrowing and vacuum phenomenon. Procedure Note Adalberto Martino MD - 12/14/2024 EXAMINATION: CT CHEST WITHOUT CONTRAST LUNG CANCER SCREENING, LOW DOSE CLINICAL INFORMATION: Lung cancer screening. Current smoker COMPARISON: Portions of previous 12/08/23 TECHNIQUE: Multidetector CT. Examination of the chest. Examination of the chest without IV contrast. Reformatting in the coronal and sagittal planes. Device: [employer]er[employer] VCT DLP: 119 mGy-cm CTDI: 3.22 Dose optimization was performed including the use of low-dose iterativereconstruction technique with automatic exposure control based on patientsize. Type of contrast: None Volume of IV contrast: None Volume of contrast discarded: 0 mL FINDINGS: LUNG: No abnormality of the trachea or mainstem bronchi. No focalpneumonia. LUNG NODULES: There are no suspicious nodules or masses. There are some micronodules including in the anterior right upper lobe andin the anterolateral left upper lobe which measures 0.3 cm or less and areunchanged. OTHER PULMONARY: There are some reticular abnormalities in the medialsegment of the middle lobe which is unchanged. There is at leastmoderately severe centrilobular emphysema. There are a few linear opacities most numerous in the dependent lower lungzones but no evidence of honeycomb formation. MEDIASTINUM: There are no enlarged mediastinal or hilar lymph nodes. Nosuspicious abnormalities of the esophagus CARDIAC: The heart is not enlarged. There is a small amount of unchangedpericardial fluid or thickening. No coronary calcifications demonstrated. VASCULAR: The ascending aorta measures 3.8 cm. The main pulmonary arterymeasures 3.1 cm PLEURA: There is no pleural fluid or pneumothorax AXILLA/CHEST WALL: There are no enlarged axillary lymph nodes. No chestwall mass demonstrated VISUALIZED UPPER ABDOMEN: The stomach is dilated. There are coarsecalcifications along the medial aspect of hepatic segment 7 unchanged. MUSCULOSKELETAL: No suspicious focal bony lesion demonstrated. Severechanges in the upper lumbar spine with sclerosis disc narrowing and vacuumphenomenon. IMPRESSION: No suspicious mass or nodule. Scattered micronodules. No suspicious interval change LUNG RADS: Lung-RADS 2: BENIGN S Modifier (Significant or Potentially Significant Findings): Nonepresent No suspicious nonpulmonary findings. RECOMMENDATIONS: 12 month screening low dose CT -------- FINAL REPORT -------- Dictated By: Adalberto Martino Dictated Date: 12/14/2024 08:05 ET Assigned Physician: Adalberto Martino Reviewed and Electronically Signed By: Adalberto Martino Signed Date: 12/14/2024 08:18 ET Workstation ID: [id number] Transcribed By: Self Edit Transcribed Date: 12/14/2024 08:05 ET us Sena Yu MD IM CT PROCEDURES Final Result * MAI SCREENING DIGITAL (06/13/2024 9:49 AM EDT) Anatomical Region Laterality Modality Mammography 06/13/2024 7:33 AM EDT Narrative 06/13/2024 9:[address] [facility] Diagnostic Imaging Department [address] [place] [id number] Patient: LANA WANG /Age/Sex: 1955 - 68 - F Unit#: [id number] Location/Status: SPDIMAM/REG CLI Mnemonic/Ordering Site: [facility] Ordering Physician: EYAD RODGERS MD [facility] Screening Digital - 06/13/24820 Report Status:Signed EXAM: [facility] Screening Digital EXAM DATE AND TIME: 06/13/2024 8:22 AM HISTORY: Annual screening COMPARISON: 06/12/2023, 05/12/2022, 05/01/2021 and 04/22/2020 TECHNIQUE: Bilateral digital breast tomosynthesis was performed in the CC and MLO projections. Computer aided detection with [employer] 7.2-H and [employer] 3D 3.1 was employed. TISSUE DENSITY: b. There are scattered areas of fibroglandular density. FINDINGS: No suspicious masses, grouped microcalcifications, or areas of architectural distortion are seen. The skin and vascularity are unremarkable. IMPRESSION: Stable mammographic appearance of the breasts. No evidence of malignancy is seen. A negative mammogram in the presence of a clinically suspicious palpable abnormality does not preclude the possibility of malignancy or alter the indications for biopsy. BI-RADS: Category 1: Negative RECOMMENDATION(S): 1: Routine screening mammogram BILATERAL in 1 year. Dictating Physician: JENAE JENKINS MD Electronically Signed by: JENAE JENKINS MD Dic Date/Time: 06/13/24947 Sign date/Time: 06/13/24948 Procedure Note Jenae Jenkins MD - 06/20/2024 [facility] Diagnostic Imaging Department [address] [place] [address] [id number] Patient: LAURALANA D.O.B./Age/Sex: 1955 - 68 - F Unit#: [id number] Location/Status: [facility] CLI Mnemonic/Ordering Site: [facility] Ordering Physician: EYAD RODGERS MD [facility] Screening Digital - 06/13/24820 Report Status:Signed EXAM: [facility] Screening Digital EXAM DATE AND TIME: 06/13/2024 8:22 AM HISTORY: Annual screening COMPARISON: 06/12/2023, 05/12/2022, 05/01/2021 and 04/22/2020 TECHNIQUE: Bilateral digital breast tomosynthesis was performed in the CCand MLO projections. Computer aided detection with [employer] 7.2-H and[employer] 3D 3.1 was employed. TISSUE DENSITY: b. There are scattered areas of fibroglandular density. FINDINGS: No suspicious masses, grouped microcalcifications, or areas ofarchitectural distortion are seen. The skin and vascularity are unremarkable. IMPRESSION: Stable mammographic appearance of the breasts. No evidence of malignancyis seen. A negative mammogram in the presence of a clinically suspicious palpable abnormality does not preclude the possibility of malignancy or alter the indications for biopsy. BI-RADS: Category 1: Negative RECOMMENDATION(S): 1: Routine screening mammogram BILATERAL in 1 year. Dictating Physician: JENAE JENKINS MD Electronically Signed by: JENAE JENKINS MD Dic Date/Time: 06/13/24 0948 Sign date/Time: 06/13/24 0949 Eyad Rodgers MD IMG BI PROCEDURES Final Result * DXA BONE DENSITY STUDY 1+ SITS AXIAL SKEL (01/10/2019 1:51 PM EDT) Anatomical Region Laterality Modality Bone Densitometr y 08/04/2018 1:57 PM EST Narrative 01/10/2019 7:10 PM EDT DEXA SCAN: Lumbar Spine T-score is 1.4. (SD relative to 20-29 y/o adult) Z-score is 3.0. (SD relative to age matched peers) This is considered normal by WHO criteria. Left Hip T-score is -1.1. Z-score is 0.0. This is considered osteopenia by WHO criteria. Left wrist: T score -0.3, Z score 1.2 This is considered normal by WHO criteria. Comparison exam(s): None. IMPRESSION: Osteopenia by WHO criteria. This patient has a 11% risk of major osteoporotic fracture and a 2.1% risk of hip fracture over the next 10 years. (World Health Organization Fracture Risk Assessment) [facility] Department of Internal Medicine recommends using National Osteoporosis Foundation (NOF) guidelines in treatment decisions related to osteoporosis. NOF guidelines suggest considering treatment for postmenopausal women and men aged 50 or older presenting with the following: History of hip or vertebral fracture. T-score = -2.5 (DXA) at the femoral neck, total hip, or spine, after appropriate evaluation to exclude secondary causes. Low bone mass (T-score between -1.0 and -2.5 at the femoral neck or spine) AND a 10-year probability of a hip fracture = 3% OR a 10-year probability of a major osteoporosis-related fracture = 20% based on the [place]-adapted WHO algorithm Please note that all treatment decisions require clinical judgment and consideration of individual patient factors, including patient preferences, co-morbidities, previous drug use, risk factors not captured in the FRAX model (e.g., frailty, falls, vitamin D deficiency, increased bone turnover, interval significant decline in bone density) and possible under- or over-estimation of fracture risk by FRAX. Optional alternative screening schedule based on alondra Hendricks., [facility] September 10, 2011 for patients with osteopenia (based on hip BMD T-score) is as follows: * advanced osteopenia (T scores -2.00 to -2.49), BMD testing every year * moderate osteopenia (T scores -1.50 to -1.99), BMD testing every 5 years mild osteopenia or normal BMD (T scores -1.50 and higher), BMD testing every 15 years Procedure Note Kirk Hoffman - 08/11/2022 DEXA SCAN: Lumbar Spine T-score is 1.4. (SD relative to 20-29 y/o adult) Z-score is 3.0. (SD relative to age matched peers) This is considered normal by WHO criteria. Left Hip T-score is -1.1. Z-score is 0.0. This is considered osteopenia by WHO criteria. Left wrist: T score -0.3, Z score 1.2 This is considered normal by WHOcriteria. Comparison exam(s): None. IMPRESSION: Osteopenia by WHO criteria. This patient has a 11% risk of majorosteoporotic fracture and a 2.1% risk of hip fracture over the next 10 years. (WorldHealth Organization Fracture Risk Assessment) [facility] Department of Internal Medicine recommendsusing National Osteoporosis Foundation (NOF) guidelines in treatment decisions related toosteoporosis. NOF guidelines suggest considering treatment for postmenopausal women and menaged 50 or older presenting with the following: History of hip or vertebral fracture. T-score = -2.5 (DXA) at the femoral neck, total hip, or spine, afterappropriate evaluation to exclude secondary causes. Low bone mass (T-score between -1.0 and -2.5 at the femoral neck or spine)AND a 10-year probability of a hip fracture = 3% OR a 10-year probability of a majorosteoporosis-related fracture = 20% based on the [place]-adapted WHO algorithm Please note that all treatment decisions require clinical judgment andconsideration of individual patient factors, including patient preferences, co- morbidities,previous drug use, risk factors not captured in the FRAX model (e.g., frailty, falls, vitaminD deficiency, increased bone turnover, interval significant decline in bone density) andpossible under- or over-estimation of fracture risk by FRAX. Optional alternative screening schedule based on alondra Hendricks., NEJMJanuary 2011 for patients with osteopenia (based on hip BMD T-score) is as follows: * advanced osteopenia (T scores -2.00 to -2.49), BMD testing every year * moderate osteopenia (T scores -1.50 to -1.99), BMD testing every 5years mild osteopenia or normal BMD (T scores -1.50 and higher), BMD testingevery 15 years Sangita Perrin DO IMG DXA PROCEDURES Final Resu lt * Colonoscopy (10/19/2016) [facility] Colonoscopy completed Anatomical Region Laterality Modality Other Historical Provider HEALTH MAINTENANCE Final Result * Hepatitis C Screening (10/10/2014) [facility] Hepatitis C Screening positive Historical Provider HEALTH MAINTENANCE Final Result from Last 3 Months or Most Recently Relevant to Health Maintenance Insurance [employer] [place] [id number] Care Teams Gasfitter Relationship Specialty Start Date End Date Eyad Rodgers MD [address] [place] [id number] PCP - General Internal Medicine 05/29/15
--- OUTSIDE RECORDS SUMMARY | 2025-03-15 12:57 | XMS_ITS ---
Author Name [facility] Organization Unknown Care Team Organization Name Specialty Phone Email Start Date End Da te [facility] 06/30/2022 04/10/20 24
== END 2025-03-15 12:41 | disposition home or self-care (01) ==
LOC: HO.MAMMO 12:40
PROVIDERS: Visit Provider Student in an Organized Health Care Education/Training Program
DX: M81.0 Age-related osteoporosis without current pathological fracture (principal)
CPT/HCPCS: 77080

== ENCOUNTER → 2025-03-15 13:00 | Outpatient (BNV) | payer MEDICARE, MEDICAID, SELFPAY | PROVIDERS: Visit Provider Radiology Diagnostic Radiology | DX: E28.39 Other primary ovarian failure (principal) | CPT/HCPCS: 77080 ==

== ENCOUNTER 2025-08-02 08:56 | Outpatient (AMB) | payer MEDICARE, MEDICAID, SELFPAY ==
--- NOTE | 2025-08-02 09:01 | A.OFFVIS_ITS ---
Vital Signs 08/02/25 09:07 Height 5 ft 7 in Weight 148 lb 2.41 oz BMI 23.2 BP 132/80 Blood Pressure Location Lt brachial Position Sitting Pulse 66 Pulse Source Pulse Oximeter Pulse Oximetry (%) 99 Oxygen Delivery Method Room Air Intake Visit Reasons: PSA Intake Note: Patient presents today for PsA follow up. Product Safety Coordinator Required: No Information Interpreted: non-clinical & clinical Accompanied by: Self / Same As Patient Allergies No Known Allergies Allergy (Verified 08/02/25 09:06) Medication List - Last Reconciled 08/02/25 by Layla Chapa MD buprenorphine-naloxone 1.4-0.36 mg (Zubsolv) 1 tab sublingual DAILY bupropion HCl XL (Wellbutrin XL) 300 mg PO QAM clonazepam 0.5 mg PO BID PRN clonidine HCl 0.2 mg PO BEDTIME PRN Humira(CF) Pen (adalimumab) 40 mg (0.4 mL) subcut Q2W NS levothyroxine 150 mcg PO DAILY lisinopril 2.5 mg PO DAILY quetiapine (Seroquel) 200 mg PO DAILY sulfasalazine 500 mg PO QID 90 days umeclidinium-vilanterol 62.5-25 mcg/actuation 1 inh inhalation DAILY HPI Comments Details: Patient is a 69-year-old female with hypertension, hypothyroidism, history of hepatitis C status post treatment (remission achieved 11/2016) who presents for follow up of psoriasis and psoriatic arthritis Interval History: Patient last seen 01/30/25 with me. - On Humira 40mg every 2 weeks and Sulfasalazine 500mg qid - At that time she was on Humira and sulfasalazine therapy without new psoriatic rashes and stable joint pain Today - On Humira 40mg every 2 weeks and Sulfasalazine 500mg qid - She is currently treated with Humira and sulfasalazine for psoriatic arthritis and reports no side effects from this combination. - Her sulfasalazine dose is 400 mg four times a day. - She was notified by her insurance that her medication will be changed from Humira to a biosimilar, as her prior authorization is expiring. - A bone density scan in February revealed osteopenia in her hip, with a hip fracture risk index of 3.6 - Her spine bone density is normal. - Regarding her skin, she sees a stock wetter annually and reports an itchy back, which her stock wetter noted as a reddish irritation in May. Rheumatologic History: Diagnosed with psoriatic arthritis in 2018. Started on sulfasalazine and Humira was added 12/2018 due to inefficacy of sulfasalazine. Current Rheumatology Medication(s): Humira 40 mg every 2 weeks Sulfasalazine 500 mg 4 times a day [facility] Medical History (Updated 08/02/25 @ 12:56 by Layla Chapa MD) Osteopenia Cataracts, both eyes Adalimumab (Humira) long-term use Bilateral primary osteoarthritis of knee Surgical History Hx of colonoscopy History of surgery H/O breast biopsy Family History Mother Stroke Hypertension Arthritis Father Cirrhosis Liver cancer Social History Household Members Other:: lives alone Housing: Other Housing Other:: Mobile home Are you a primary home care scheduler to a significant other at home: No Do you presently have visiting nurse or other home services: No 75 years or older and lives alone: No Alcohol intake: never Tobacco use type: Cigarette Cigarettes Per Day: 7 Years Smoked: 35 years e-Cigarette/Vaping Use: Never Used service: No Current occupational status: retired Review of Systems Const Details: Review of Systems - Constitutional: Denies fever. - ENT: Reports sore throat. - Integumentary: Reports an itchy back. - Denies any new psoriasis rash. - General: Reports no significant changes in her overall condition since her last visit. All other systems reviewed and are unremarkable except noted above Physical Exam Exam Exam: Vital signs reviewed Physical Examination CONSTITUITIONAL Patient alert and cooperative. Well appearing and in no apparent painful distress MSK Hands * Right Hand: Able to make a fist. No swelling or tenderness to palpation of the MCPs, PIPs or DIPs. * Left Hand: Able to make a fist. No swelling or tenderness to palpation of the MCPs, PIPs or DIPs. Wrists * Right Wrist: Full ROM to flexion and extension. No swelling or TTP * Left Wrist: Full ROM to flexion and extension. No swelling or TTP Elbows * Right Elbow: Full ROM. No swelling or TTP. No TTP of the medial epicondyle. No TTP of the lateral epicondyle * Left Elbow: Full ROM. No swelling or TTP. No TTP of the medial epicondyle. No TTP of the lateral epicondyle Shoulders * Right shoulder: Full ROM. No swelling noted. No TTP of the AC joint. No TTP of the subacromial bursa. No TTP of the posterior shoulder * Left shoulder: Full ROM. No swelling noted. No TTP of the AC joint. No TTP of the subacromial bursa. No TTP of the posterior shoulder Knees * Right knee: No swelling noted. No TTP of the knee joint line. No TTP of pes anserine bursa * Left knee: No swelling noted. No TTP of the knee joint line. No TTP of pes anserine bursa. * Crepitations felt bilaterally Ankles * Right ankle: Good ankle dorsiflexion and plantar flexion. No swelling. No TTP of the ankle joint * Left ankle: Good ankle dorsiflexion and plantar flexion. No swelling. No TTP of the ankle joint Feet * Right foot: Negative squeeze test * Left foot: Negative squeeze test Tender points? * No tenderness to palpation of the bilateral trapezius, supraspinatus, anterior costochondral junctions, bilateral suboccipital muscle insertions SKIN No rashes Vital Signs: Last Vital Signs Pulse 66 08/02/25 09:07 BP 132/80 08/02/25 09:07 Pulse Ox 99 08/02/25 09:07 Oxygen Delivery Method Room Air 08/02/25 09:07 BMI result Body Mass Index 23.2 Results Reviewed Results Reviewed: Laboratory Tests 01/02/25 13:55 WBC 5.6 RBC 4.20 Hgb 13.0 Hct 39.2 Plt Count 207 ESR 2 Sodium 138 Potassium 4.0 Chloride 101 Carbon Dioxide 29 BUN 14 Creatinine 0.79 AST 18 ALT 11 Alkaline Phosphatase 38 L C-Reactive Protein 0.15 Laboratory Tests 09/08/24 13:48 Hepatitis A IgM Ab Nonreactive Hep Bs Antigen Negative Hep Bs Antibody REACTIVE Hep B Core Total Ab Reactive Hep B DNA copies/mL NOT DETECTED Hep B DNA (IU/mL) NOT DETECTED Hepatitis C Ab (EIA) Reactive H Hep C Viral Load <15 NOT DETECTED Hep C Viral Load Log <1.18 NOT DETECTED DEXA 02/2025 FINDINGS: The bone mineral density of the lumbar spine is 1.327 g/cm2, corresponding to a T-score of 1.2, and a Z-score of 2.9. This is indicative of normal bone mineral density. The bone mineral density of the left total hip is 0.772 g/cm2, corresponding to a T-score of -1.9, and a Z-score of -0.5. This is indicative of osteopenia. The bone mineral density of the left femoral neck is 0.800 g/cm2, corresponding to a T-score of -1.7, and a Z-score of -0.1. This is indicative of osteopenia. FRACTURE RISK: The FRAX index suggests a risk of major osteoporotic fracture of 13.0%, and of hip fracture 3.6%. Assessment & Plan Assessment & Plan (1) Psoriatic arthritis: Comment: Sulfasalazine since 05/10 Humira added 01/08, held for a few weeks due to rash Code(s): L40.50 - Arthropathic psoriasis, unspecified Category: Medical Plan: #Psoriatic Arthritis Patient is a 69-year-old female with psoriasis complicated by psoriatic arthritis on Humira and sulfasalazine. The patient's psoriatic arthritis is stable on her current regimen of Humira and sulfasalazine, with no reported side effects. Due to an insurance mandate, a prior authorization will be initiated to switch her from Humira to a biosimilar. The plan to decrease her sulfasalazine dose will be deferred to avoid confounding factors with the medication change. Lab work will be done today, as the last set was performed in December. She will follow up in 4 months to monitor her response to the new medication. Plan - Stop Humira - Start Adalimumab-aaty 40mg SC every other week - Sulfasalazine 400mg qid. Will try to taper at next visit to twice a day - RTC 6 months - Labs prior to visit: CBC, CMP, ESR, CRP (2) Osteoarthritis of hands, bilateral: Code(s): M19.041 - Primary osteoarthritis, right hand; M19.042 - Primary osteoarthritis, left hand Category: Medical Qualifiers: Osteoarthritis type: other secondary Qualified Code(s): M19.241 - Secondary osteoarthritis, right hand; M19.242 - Secondary osteoarthritis, left hand Plan: #Bilateral Hand OA Bilateral hand OA. Overall stable not complaining of any morning stiffness or pain to the hands. (3) Bilateral primary osteoarthritis of knee: Code(s): M17.0 - Bilateral primary osteoarthritis of knee Category: Medical Plan: #Bilateral Knee OA Bilateral knee osteoarthritis as confirmed by imaging of the left knee in 2018. At this time she states that her knees are doing well. In the future we can consider viscosupplementation if her knees worsen. (4) Osteopenia: Comment: DEXA 02/2025: AP Spine 1.2, Left total hip -1.9, Left femoral neck -1.7. FRAX 13/3.6 Code(s): M85.80 - Other specified disorders of bone density and structure, unspecified site Category: Medical Qualifiers: Osteopenia location: multiple sites Qualified Code(s): M85.89 - Other specified disorders of bone density and structure, multiple sites Plan: #Osteopenia A bone density scan from February showed osteopenia of the hip with a fracture index of 3.6, which is slightly above the treatment threshold. Given that her spine bone density is normal, the plan is to manage this with strengthening exercises rather than starting a new medication. Her vitamin D level will be checked today, and supplementation will be initiated if it is found to be low. 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: Code(s): Z79.899 - Other petroleum terminal plant operator (current) drug therapy Category: Medical Plan: #Long-term Use of Sulphasalazine Discussed with patient the risks and benefits of sulfasalazine in the management of the rheumatic condition Benefits include: - Reduced pain, reduce mortality, maintenance of remission then reduction of flares Risks include: - GI upset, hemolysis (especially if G6PD deficiency), eosinophilia, headache, dizziness, rash, elevated LFTs (6) Adalimumab (Humira) long-term use: Code(s): Z79.620 - nursing home (current) use of immunosuppressive biologic Category: Medical Plan: #Long-term Use of TNF Inhibitors: Adalimumab-aaty Discussed with the patient the benefits and risks of TNF inhibitors for the management of the rheumatic condition Benefits include reduce pain, maintenance of remission and reduction of flares as well as ?progression of the disease Risks include injection sites/infusion reactions, serious infections (such as bacterial infections, opportunistic infections), malignancy, delaminating syndr omes, autoimmune phenomena, CHF exacerbations, palmar plantar psoriasis and cytopenias Recommended rotating injection sites, and holding medication during and for up to 1 week after resolution of a febrile illness or open skin wound Plan I spent 35 minutes reviewing the record and labs, taking a history, examining the patient, discussing the treatment plan and documenting in the medical record Orders: Orders C Reactive Protein 4 Months Z - Other petroleum terminal plant operator (current) drug therapy Vitamin D 25-OH Total 4 Months E55.9 - Vitamin D deficiency, unspecified Complete Blood Count Auto Diff 4 Months - Other petroleum terminal plant operator (current) drug therapy Comprehensive Met. Panel 4 Months - Other prison (current) drug therapy Erythrocyte Sedimentation Rate 4 Months - Other petroleum terminal plant operator (current) drug therapy Medications: New adalimumab-aaty 40 mg (0.4 mL) subcut Q2W 2 ea 5RF L40.50 - Arthropathic psoriasis, unspecified adalimumab-aaty 40 mg (0.4 mL) subcut Q2W 2 ea 5RF L40.50 - Arthropathic psoriasis, unspecified Refilled sulfasalazine 500 mg PO QID 360 tabs 1RF 90 days L40.50 - Arthropathic psoriasis, unspecified Discontinued Humira(CF) Pen (adalimumab) Discontinued Reason: Doctor's Order 40 mg (0.4 mL) subcut Q2W 2 ea 5RF NS L40.50 - Arthropathic psoriasis, unspecified Coding Level of Care Code Est Pt Level 4 (90865) Add On Problem Visit Only Diagnoses Psoriatic arthritis L40.50 Other secondary osteoarthritis of both hands M19.241; M19.242 Osteoarthritis type: other secondary Bilateral primary osteoarthritis of knee M17.0 Osteopenia of multiple sites M85.89 Osteopenia location: multiple sites 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 Adalimumab (Humira) long-term use Z79.620
[2025-08-02 09:07] VITALS: BP 132/80; PULSE 66; O2SAT 99; BMI 23.2
== END 2025-08-02 09:36 | disposition home or self-care (01) ==
LOC: HO.RHES 08:56
PROVIDERS: PCP Internal Medicine; Visit Provider Student in an Organized Health Care Education/Training Program
DX: L40.50 Arthropathic psoriasis, unspecified (principal); M19.241 Secondary osteoarthritis, right hand; M19.242 Secondary osteoarthritis, left hand; M17.0 Bilateral primary osteoarthritis of knee; M85.89 Other specified disorders of bone density and structure, multiple sites; Z79.899 Other long term (current) drug therapy; Z79.620 Long term (current) use of immunosuppressive biologic
CPT/HCPCS: 99214; G2211

== ENCOUNTER 2025-08-02 08:56 | Outpatient (REF) | payer MEDICARE, MEDICAID, SELFPAY ==
[2025-08-02 14:11] LABS: MANUAL DIFF FLAG NO
[2025-08-02 14:16] LABS: White Blood Count 5.2 X10*3/uL (4.8-10.8)
[2025-08-02 14:17] LABS: Hematocrit 39.0 % (37.0-47.0); Hemoglobin 12.8 g/dl (12.0-16.0); Imm Gran Abs Auto 0.01 X10*3/uL (0.00-0.03); Imm Gran Pct Auto 0.2 % (0.0-0.4); Lymphocytes Absolute Auto 1.7 X10*3/uL (1.2-4.9); Mean Corpuscular HGB Conc 32.8 g/dl (31.0-35.0); Mean Corpuscular Hemoglobin 30.8 pg (27.0-33.0); Mean Corpuscular Volume 94.0 fL (80.0-98.0); NRBC Abs Auto 0.000 X10*3/uL (0.0-0.012); NRBC Pct Auto 0.0 /100WBC (0.0-0.2); Platelet Count 217 X10*3/uL (160-400); Red Blood Count 4.15 X10*6/uL (4.20-5.50)
[2025-08-02 14:48] LABS: Alanine Aminotransferase 19 U/L (0-31); Albumin Level 4.3 g/dL (3.5-5.0); Alkaline Phosphatase 45 U/L (39-117); Anion Gap 11 (12-20); Aspartate Amino Transferase 26 U/L (5-31); Blood Urea Nitrogen 12 mg/dL (9-16); Calcium 9.1 mg/dL (8.4-10.2); Carbon Dioxide 27 mmol/L (22-29); Chloride 101 mmol/L (96-108); Estimated Glomerular Filt Rate > 60; Potassium 4.7 mmol/L (3.3-5.1); Sodium 134 mmol/L (135-145); Total Protein 6.8 g/dL (6.5-8.0)
== END 2025-08-02 08:57 | disposition home or self-care (01) ==
LOC: HO.HKASLDS 08:56
PROVIDERS: PCP Internal Medicine; Visit Provider Student in an Organized Health Care Education/Training Program
DX: L40.50 Arthropathic psoriasis, unspecified (principal); E55.9 Vitamin D deficiency, unspecified; M19.241 Secondary osteoarthritis, right hand; M19.242 Secondary osteoarthritis, left hand; M17.0 Bilateral primary osteoarthritis of knee; M85.89 Other specified disorders of bone density and structure, multiple sites; Z79.620 Long term (current) use of immunosuppressive biologic; Z79.899 Other long term (current) drug therapy
CPT/HCPCS: 36415; 80053; 82306; 85025; 85652; 86140; 99212